=== PATIENT | female | born 1950 | race Caucasian/White ===

== ENCOUNTER → 2017-07-05 | Outpatient (CLI) | payer OTHER, MEDICARE ==
[~2017-07-05] MED LIST: ALBU1AER9 INH; ASPEC325 PO; ATEN-173 PO; ATOR-24 PO; DILT120C51 PO; EFFSR75 PO; FLUT220A PO; HYDR25TA4 PO; ISOS120T PO; LISI-729 PO; NTRGSL/4 UT; TIOTCAP INH
--- NOTE | 2017-07-06 05:57 | PAP/PSG TECHNICIAN REPORT ---
[facility] Siding Coreboard Inspector Polysomnogram Report Study name: None Report date: 07/06/2017 Study date: 07/05/2017 Referring Physician: Misty Renee M.D. Name: EMILY PELAEZ Interpreting Physician: Doron Renee M.D. Date of : 1950 Siding Coreboard Inspector: Sil Elliott [facility]. Sex: Female Age: 67 StudyType: PSG Weight: 239 lbs Height: 67 years, Height 5' 7.5" Neck Circum: 15.5 inches BMI: 36.88 Medications: Breo Ellipta 100-25 MCG, Nitro Stat 0.4 mg, Lipitor 80 mg, Prinivil 5 mg, Isosorbide 120 mg, ProAir 108(90 Base), HCTZ 25 mg, Diltiazem 120 mg, Advair 250-50 MCG, Atenolol 25 mg, Effexor 75 mg, Spiriva 18 mcg, Aspirin Patient History 66 yr. old female here for a possible split night sleep study with ETC02. Patient complains of EDS, snoring, restlessness, and has dream enactment. Patient has a history of HCC and ASVCD. Patients [place] Sleepiness Scale Score is 13/24. Parameters Monitored NPSG: E1-M2, E2-M1, Fp1-M2, Fp2-M1, F3-M2, F4-M2, F4-M1, C3-M2, C4-M2, C4-M1, O1-M2, O2-M2, O2-M1, T3-M2, T4-M1, P3-M2, P4-M1, CHIN1, CHIN2, HR, EKG, Legs, PFLOW, SNOR, FLOW, CFLOW, Tidal Volume, THOR, ABDO, SpO2, PLTH, CPRESS, ETCO2 Wave, ETCO2, pH Sleep Architecture Sleep Stages Time at Lights Off 10:00:26 PM STAGES Time (min.) TST (%) Time at Lights On 5:42:56 AM Wake 121.0 -- Total Recording Time (TRT) 463.00 min. N1 51.0 15 Total Sleep Period (TSP) 426.5 min. N2 197.5 58 Total Sleep Time (TST) 341.5min. N3 28.5 8 Awake Time 121.0 min. REM 64.5 19 Wake after Sleep Onset 85.0 min. Sleep Efficiency (SE) 74 % Sleep Onset Latency (BINH) 36.0 min. Number of Stage 1 Shifts None Awakenings 22 Stage Changes 94 Number of REM periods 1 REM 64.5 19 REM Latency 306.5 min. NREM 277.0 81 Body Position Analysis Supine Right Left Side Prone Vertical Total Sleep Time (min.) 57.0 197.0 119.5 316.50 0.0 0.1 Total Sleep Time (%) 7% 58% 35% 93 0% N/A% Total Sleep Time REM (min.) 0.0 64.5 0.0 None 0.0 0.0 Total Sleep Time NREM (min.) 25.0 132.5 119.5 None 0.0 0.0 Intermittent Wake (min.) 32.0 69.2 19.7 None 0.0 0.1 Total Sleep Period (%) 6% None None None None None Arousals Myoclonus (PLM) * Events Count Index Events Count Index Spontaneous 5 1 Events Awake (PLMW) 140 69.4 Respiratory 0 0.0 Events Asleep w/ Arousal (PLMA) 46 8.1 PLM 46 8 Events Asleep w/o Arousal (PLMS) 390 68.5 Snoring 6 1 Total Asleep 436 76.6 Total 57 10 Total 576 75 Respiratory Analysis * CA OA MA CH H RERA Total Count 0 0 0 0 10 0 10 Index 0.0 0.0 0.0 0 1.8 0 1.8 Mean Duration 0.0 0.0 0.0 0.00 25.5 0.0 25.5 Longest Duration 0.0 0.0 0.0 0.00 0.0 0.0 59.8 Respiratory Event Summary Total Supine ~Supine Right Left Prone REM NREM Apneas Count 0 0 0 0 0 N/A 0 0 Index 0.0 0 0 0.0 0.0 N/A 0 0 Hypopneas (4% Desat) Count 10 1 9 3 6 N/A 3 7 Index 1.8 2.4 2 0.9 3.0 N/A 2.8 1.5 Apneas & All Hypopneas Count 10 1 9 3 6 N/A 3 7 Index 1.8 2 2 1 3 N/A 2.8 1.5 Respiratory Events (Premises Technician+All Hyp+RERA) Count 10 1 9 3 6 N/A 3 7 Index 1.8 2 2 0.9 3.0 N/A 2.8 1.5 Respiratory Related Arousal Count 0 1 0 0 0 N/A 0 0 Index 0.0 0 0 0 0 N/A 0 0 Snoring Analysis Supine Right Left Prone REM NREM Total Snore duration 8.3 min Snores count 30 112 360 N/A 8 494 502 Snore mean duration 1.0 Sec Snores index 72 34 181 N/A 7.4 107.0 88.2 TST with snoring (%) 2.4% SpO2 Analysis Total REM NREM Awake <50% 0.0 min. 0.0 min. 0.0 min. 0.0 min. 51 - 60% 0.0 min. 0.0 min. 0.0 min. 0.0 min. 61 - 70% 0.0 min. 0.0 min. 0.0 min. 0.0 min. 71 - 80% 21.1 min. 0.5 min. 14.6 min. 5.9 min. 81 - 90% 408.4 min. 64.0 min. 246.1 min. 98.4 min. 91 - 100% 23.2 min. 0.0 min. 16.2 min. 6.9 min. Average 85 86 85 85 Minimum SpO2 75 79 75 75 Desaturation Event Index 3.1 3.7 2.4 4.5 # Desat. Events below 89% 24 4 11 9 Time(%) with Saturation below 89% 88.0 13.9 53.2 20.9 Time(min.) with Saturation below 89% 398.6 62.7 241.0 94.8 Heart Rate Analysis End Tidal CO2 Analysis Min (bpm) Max (bpm) Average (bpm) TSP (mins) % of TSP Awake 64 205 80 Above 55 mmHg 0.0 0.0 NREM 61 86 77 50-55 mmHg 0.0 0.0 REM 75 88 81 45-50 mmHg 1.1 0.3 Overall 61 88 77 40-45 mmHg 203.4 59.6 35-40 mmHg 114.7 33.6 30-35 mmHg 15.3 4.5 Average ETCO2 0.0 Supplemental O2 Values Minimum O2 level: None Value Start Time End Time Siding Coreboard Inspector Comments Test was started on room air. At 4:53 am, MS. Pelaez was under 89% for 302.2 minutes and 1lpm 02 was added. MS. Pelaez slept in the right, left, and supine positions. No Cardiac arrhythmia. PLMs noted. No bruxism noted. Snoring was noted and scored as a 2 on a scale of 0 through 5. (0=no snoring, 5=snoring loud enough to be heard through a closed door or down the vigil way) MS. Pelaez awoke to use the restroom two times during the night. MS. Pelaez stated, that was a pretty normal night. The final report will be interpreted and signed by a sleep physician. The completed physician report will then be placed in the patient medical record. Therapy (cm H2O) 0 TIB (min.) 462.5 TST (min.) 341.5 Sleep Onset (min.) 36.0 REM Onset From Sleep (min.) 306.5 Sleep Efficiency % 74 Wakefulness (%) 26 Wakefulness (min.) 121.0 NREM 1 (%) 15 NREM 1 (min.) 51.0 NREM 2 (%) 58 NREM 2 (min.) 197.5 NREM 3 (%) 8 NREM 3 (min.) 28.5 REM (%) 19 REM (min.) 64.5 # Arousals 57 Arousal Index 10 # Snore 502 Snore Index 88.2 AHI 1.8 AHI Supine 2 AHI Non-Supine 2 NREM AHI 1.5 REM AHI 2.8 RDI 1.8 # Obstructive Apnea 0 # Central Apnea 0 # Mixed Apnea 0 # Hypopneas 10 RERAs 0 Total Respiratory Events 11 Time Below SpO2 89% (min.) 303.8 Mean NREM SpO2 (%) 85 Mean REM SpO2 (%) 86 Mean Sleep SpO2 (%) 85 Min NREM SpO2 (%) 75 Min REM SpO2 (%) 79 Position Supine (min.) 57.0 Position Non-supine (min.) 316.5 LM Index Sleep 76.6 LM Index NREM 92.9 LM Index REM 6.5 Mean Heart Rate (bpm) 77 Min Heart Rate (bpm) 61
--- NOTE | 2017-07-14 09:19 | POLYSOMNOGRAPH REPORT ---
REFERRING PERSON: Dr. Gio Renee. GAS STATION ATTENDANT: Sil Elliott. Ms. Pelaez is a 66-year-old female sent for a possible split night sleep study. She complains of excessive daytime sleepiness, snoring, restlessness and she has had some dream enactment. She has a history of atherosclerotic heart disease. Her [place] sleepiness scale score on the evening of this study is 13. BMI is 36.88. Following the technical and digital specifications of the [place] [employer] (AASM) a standard diagnostic polysomnogram was performed monitoring EEG, EOG, EMG (chin and leg deviations), oxygen saturation, body position, digital video, respiratory effort and airflow. The sleep Stage and event scoring was based on the AASM Manual for the Scoring of Sleep and Associated Events 2007 edition. Apneas are defined as a drop in the peak thermal sensor excursion by >90% of baseline for at least 10 seconds. Hypopneas were scored using the 4% oxygen desaturation rule (4A-[employer]) and a decrease in the nasal pressure excursions by >30% of baseline for at least 10 seconds. Respiratory effort-related arousal (RERA's) is defined as a sequence of breaths lasting at least 10 seconds characterized by increasing respiratory effort or flattening of the nasal pressure waveform leading to an arousal from sleep when the sequence of breaths does not meet criteria for an apnea or hypopnea. Apnea Hypopnea index (AHI) is defined as the number of apneas and hypopneas occurring in an hour of sleep. Respiratory disturbance index (RDI) is defined as the number of apneas, hypopneas, and RERA's occurring in an hour of sleep. Ms. Pelaez' total sleep period time was 426.5 minutes. Total sleep time was 341.5 minutes. Sleep efficiency was 74%. Latency to sleep onset was 36 minutes with wake after sleep onset of 85 minutes. Total non-REM sleep time was 277 minutes. He spent 15% of that time in N1 sleep, 58% in N2 sleep and 8% in N3 sleep. REM latency was 306.5 minutes. Total REM sleep time was 64.5 minutes or 19% of total sleep time. There were 57 cortical arousals from sleep. Six of these arousals were due to snoring and 46 were due to periodic limb movements of sleep and 5 were due to snoring. There were 436 periodic limb movements noted on this test. Limb movement index was 76.6. Limb movement with arousal index was 8.1. There were no central obstructive or mixed apneas on this test. However, there were 10 hypopneas. Apnea-hypopnea index was normal at 1.8. 502 snoring events were recorded. Total sleep time with snoring was 2.4%. Mean saturation was low at 85% with desaturations to 75% noted on this study. Saturations were less than 89 for 398.6 minutes of recorded time. This is very significant nocturnal hypoxemia. This may contribute to periodic limb movements of sleep that were noted on this test as well. At 4:53 a.m., this patient's saturations had been less than 89 for 302.2 minutes of recorded time and 1 liter of oxygen was added for the remainder of the night. Heart rates during sleep ranged from a low of 61 beats per minute to a high of 88 beats per minute. End-tidal CO2s were between 40 and 45 mmHg for 59.6% of total sleep period time, between 35 and 40 mmHg for 33.6% and between 30 and 35 mmHg for 4.5% of total sleep period time. IMPRESSION AND PLAN: Ms. Pelaez is a 67-year-old female without evidence of sleep apnea but very significant nocturnal hypoxemia on this study. 1. This patient would likely benefit from oxygen therapy. She could have an NPO at home to ensure her hypoxemia resolves with oxygen therapy. Should her insurance require, she could have an NPO prior to starting oxygen to confirm these results. 2. This patient would likely also benefit from pulmonary function test and/or pulmonary consult given that her hypoxemia was noted both during wakefulness and sleep.
== END | disposition home or self-care (01) ==
LOC: C.NEUR 09:12
PROVIDERS: ATTEND Family Medicine
DX: R06.83 Snoring (principal); G47.10 Hypersomnia, unspecified; J96.11 Chronic respiratory failure with hypoxia; I25.10 Atherosclerotic heart disease of native coronary artery without angina pectoris; J44.9 Chronic obstructive pulmonary disease, unspecified

== ENCOUNTER 2023-03-26 08:28 | Inpatient (IN) ==
[2023-03-26] MEDS ORDERED: SODIUM CHLORIDE 0.9% 500 ML IV STA (08:44)
[2023-03-26] MEDS ORDERED: SODIUM CHLORIDE 0.9% 1000ML 1,000 ML IV STA (08:44)
[2023-03-26] MEDS ORDERED: ONDANSETRON INJ 2 MG/ML 2 ML VIAL IV STA (08:44)
--- NOTE | 2023-03-26 08:56 | Emergency Department Note ---
Impression & Plan Abdominal pain, lower, Acute UTI (urinary tract infection), Pyelonephritis, Hydroureteronephrosis, Abdominal lymphadenopathy ED Provider Note INFORMANT: Patient ED PROVIDER(S): Wojciech Eavns MD CHIEF COMPLAINT: Abdominal pain PLAN: Disposition: Admitted Condition: Good Outpatient prescription management: none Referral: None MEDICAL DECISION MAKING: Patient presented because of abdominal pain. She had an IV established. Blood work obtained. Patient was treated with Zofran and IV fentanyl. She felt significantly better after this. Patient's blood work was concerning for mild leukocytosis. Lactate was within normal limits. Chemistry panel including creatinine was unremarkable. Urinalysis raise concern for infection. Patient underwent CT imaging and she had hydronephrosis and hydroureter on the left without obvious stone. There was concerned due to significant mount of adenopathy in the abdomen. Exact etiology of this is not known however lymphoma is a possibility. I did discuss this with patient. Given the findings concerning for upper UTI further consultation and hospitalization will be necessary. Consultation was made with Dr. Perez of urology. He will see the patient in consult. I did consult with the [facility] service. Case was discussed with Sivan Gillespie PA-C. Patient will be admitted for further management. Patient was treated with IV Rocephin. Patient was educated. Patient pleased with her treatment. Discussed with digital marketing manager After review of the information above and other included data, I feel the patient requires admission. Triage Nursing notes reviewed and agree them. Vital Signs: reviewed and remarkable for no significant abnormalities Prior /Outside records reviewed: GI records reviewed. Differential diagnosis: Diverticulitis, mesenteric ischemia, renal colic, UTI, appendicitis, aortic pathology, infections, inflammatory bowel disease, PUD, biliary pathology, as well as other pathologies. Diagnostics, as interpreted by me: ECG: Twelve-lead ECG reveals sinus tachycardia with PVCs at [address] elevation. Low voltage QRS. Septal Q wave. Cardiac Monitoring: Cardiac monitoring ordered by me: The patient was placed on continuous cardiac monitoring and observed. It revealed a normal sinus rhythm at 88 beats per minute without ectopy or evidence of dysrhythmia. Medical decision rules: none Imaging studies: CT scan as above. Lymphadenopathy and hydroureteronephrosis. I refer you to the EMR for further details. HPI: The patient is a 72year old female who presents to the Emergency Room with complaints of lower abdominal pain. This started about 1.5 to 2 weeks ago and is constant and worsening. The patient also notes the following associated symptoms, nausea, dry heaves, no appetite, back pain, loss of weight. The patient has found no relieving factors. Current pain is rated as 9/10. Pt denies LOC, headache, fevers, chills, diaphoresis, visual changes, neck pain, chest pain, breathing difficulties, vomiting, melena, hematochezia, urinary symptoms, numbness, weakness, lymphadenopathy, rash, or other complaints. PAST MEDICAL HISTORY: See Below, diabetes, hypertension, high cholesterol, CAD PAST SURGICAL HISTORY: See Below, SOCIAL HISTORY: See Below, former smoker HOME MEDICATIONS: See Below ALLERGIES: See Below VITALS: See Below PHYSICAL EXAMINATION: GENERAL: Awake, alert, uncomfortable-appearing, in mild to moderate distress HENT: Normocephalic, atraumatic. Oropharynx unremarkable. EYES: Normal conjunctiva. Sclera non-icteric. NECK: Inspection normal. Non-tender. Supple. No nuchal rigidity. FROM. No masses. RESPIRATORY: Clear to auscultation. No wheezes. No rales. Normal respiratory effort. CARDIAC: Normal rate. Normal rhythm. No murmurs. No rubs. Extremities warm and well perfused. Pulses equal. No JVD. GI: Soft, non-distended. Mild upper but moderate left lower quadrant tenderness to palpation. No rebound but moderate guarding. No masses. MUSCULOSKELETAL: Atraumatic. Chest examination reveals no tenderness. The back is symmetrical on inspection without obvious abnormality. There is mild left CVA tenderness to palpation. No joint edema. LOWER EXTREMITIES: Calves are equal size bilaterally and non-tender. No edema. No discoloration. NEURO: Normal sensorium. No sensory or motor deficits noted. SKIN: No rash or jaundice noted. Past Med/Surg History Medical History (Updated 03/26/23 @ 13:17 by Wojciech Evans MD) Anxiety and depression CAD (coronary artery disease) F/U ETIENNE CHISHOLM/RADHA SMITH Chest pain HX-LAST EPISODE OVER 1 MONTH AGO-NITRO RELIEVED Chronic obstructive pulmonary disease USES INHALER "OFTEN" Chronic respiratory failure Diabetes mellitus, type 2 GERD (gastroesophageal reflux disease) Hyperlipidemia Hypertension Myocardial Infarction X2 (5+ YEARS AGO) On home oxygen therapy 3L O2 ORDERED PRN AT HOME Osteoporosis Restless leg syndrome Stomach ulcer ?>REASON FOR EGD Surgical History Ganglion cyst REMOVED ON WRIST H/O total hysterectomy History of arthroscopy RT/LEFT KNEE History of cardiac cath X 3 ( NO STENTS, LAST 3 YEARS AGO) FOLLOWED BY DR. SMITH History of colonoscopy History of esophagogastroduodenoscopy (EGD) History of herniorrhaphy History of open reduction and internal fixation (ORIF) procedure LEFT ANKLE (HARDWARE INTACT) History of tooth extraction Family History Brother Family hx of colon cancer Other No family history of adverse response to anesthesia Social History Smoking Status: Former smoker Tobacco Type: Cigarettes Second Hand Exposure: No; Do You Dip or Chew Tobacco: No; Hx Alcohol Use: No Hx Substance Use: No Preferred Language: Mohawk Communication Ability: Effective Road Passenger Firer Required: No Beliefs That Will Affect Care: None Current Living Situation: Spouse Current Living Situation Comment: HAS DEMENTIA>PT HELPS TAKE CARE OF HIM current occupational status: retired Feels Safe at Home: Yes Assistive Devices: Denture - Upper and Glasses Allergies Allergies Allergy/AdvReac Type Severity Reaction Status Date / Time tramadol Allergy Severe HIVES/TONGUE Verified 03/02/23 08:20 SWELLING morphine AdvReac Intermediate SEVERE N/V Verified 03/02/23 08:20 codeine AdvReac Mild NAUSEATED Verified 03/02/23 08:20 AND DIZZINESS, NO VOMITING YET. Home Meds Home Medications Medication Instructions Recorded Confirmed albuterol sulfate 90 mcg/actuation 2 inh inhalation Q6H PRN SHORT OF 09/03/19 03/26/23 breath activated powder inhaler BREATH (ProAir RespiClick) aspirin 81 mg tablet,delayed 81 mg PO QAM 09/03/19 03/26/23 release atenolol 25 mg tablet 25 mg PO UD 09/03/19 03/26/23 atorvastatin 80 mg tablet 80 mg PO HS 09/03/19 03/26/23 diltiazem HCl 180 mg 180 mg PO QAM 09/03/19 03/26/23 capsule,extended release 24 hr hydrochlorothiazide 25 mg tablet 25 mg PO QAM 09/03/19 03/26/23 isosorbide mononitrate 120 mg 120 mg PO QAM 09/03/19 03/26/23 tablet,extended release 24 hr lisinopril 5 mg tablet 5 mg PO QAM 09/03/19 03/26/23 metformin 500 mg tablet 1,000 mg PO BID 09/03/19 03/26/23 venlafaxine 150 mg 75 mg PO QAM 09/03/19 03/26/23 capsule,extended release 24 hr nitroglycerin 0.4 mg sublingual 0.4 mg sublingual USEASDIRECTD PRN 09/11/20 03/26/23 tablet (Nitrostat) Chest Pain famotidine 40 mg tablet (Pepcid) 40 mg PO HS 04/13/22 03/26/23 ondansetron 4 mg disintegrating 4 mg PO Q6H PRN Nausea 02/24/23 03/26/23 tablet sucralfate 1 gram tablet 1 g PO ACHS 02/24/23 03/26/23 iron,carbonyl 65 mg-vitamin C 125 1 tab PO MOWEFR@0900 03/26/23 03/26/23 mg tablet,delayed release (Vitron-C) nystatin 100,000 unit/gram topical 1 applic topical TID 03/26/23 03/26/23 powder umeclidinium 62.5 mcg-vilanterol 1 inh inhalation DAILY 03/26/23 03/26/23 25 mcg/actuation powdr for inhalation (Anoro Ellipta) Results & Data (ED) Vital Signs Vital Signs - 24 hr 03/26/23 08:36 03/26/23 09:06 03/26/23 09:24 Temperature 36.6 C Temperature Source Temporal Artery Scan Pulse Rate 88 102 H Pulse Rate [Left Finger] Pulse Rhythm [Left Finger] Pulse Strength [Left Finger] Respiratory Rate 20 Respiratory Effort / Characteristics Non-Labored Respiratory Depth Normal Respiratory Pattern Blood Pressure 167/91 H Blood Pressure [Left Arm] Blood Pressure Mean 116 Blood Pressure Mean [Left Arm] Blood Pressure Position [Left Arm] Pulse Oximetry 97 85 L Oxygen Delivery Method Room Air Room Air Oxygen Flow Rate Sepsis Recent Fever Within 48 Hours No Sepsis New/Unexplained Change in Mental Status N/A Sepsis Action Taken by Nursing No Action Required Oxygen Flow Rate - Titration 3 Pulse Oximetry Post Tiitration 95 03/26/23 10:03 03/26/23 11:51 03/26/23 11:53 Temperature Temperature Source Pulse Rate Pulse Rate [Left Finger] 100 H 106 H Pulse Rhythm [Left Finger] Regular Pulse Strength [Left Finger] Normal Respiratory Rate 26 H Respiratory Effort / Characteristics Non-Labored Spontaneous Respiratory Depth Normal Respiratory Pattern Regular Blood Pressure Blood Pressure [Left Arm] 192/98 H 192/98 H 175/108 H Blood Pressure Mean Blood Pressure Mean [Left Arm] 129 129 130 Blood Pressure Position [Left Arm] Sitting Pulse Oximetry 100 92 Oxygen Delivery Method Nasal Cannula Nasal Cannula Oxygen Flow Rate 3 3 Sepsis Recent Fever Within 48 Hours Sepsis New/Unexplained Change in Mental Status Sepsis Action Taken by Nursing Oxygen Flow Rate - Titration Pulse Oximetry Post Tiitration 03/26/23 12:07 Temperature Temperature Source Pulse Rate 107 H Pulse Rate [Left Finger] Pulse Rhythm [Left Finger] Pulse Strength [Left Finger] Respiratory Rate Respiratory Effort / Characteristics Respiratory Depth Respiratory Pattern Blood Pressure 175/108 H Blood Pressure [Left Arm] Blood Pressure Mean Blood Pressure Mean [Left Arm] Blood Pressure Position [Left Arm] Pulse Oximetry Oxygen Delivery Method Oxygen Flow Rate Sepsis Recent Fever Within 48 Hours Sepsis New/Unexplained Change in Mental Status Sepsis Action Taken by Nursing Oxygen Flow Rate - Titration Pulse Oximetry Post Tiitration Laboratory Data 03/26/23 09:04 03/26/23 09:04 Lab Results 03/26/23 03/26/23 03/26/23 Range/Units 09:04 09:04 09:04 WBC 11.81 H (4.8-10.8) K/ul RBC 5.18 (4.20-5.40) M/uL Hgb 12.9 (12.0-16.0) g/dl Hct 39.3 (37.0-47.0) % MCV 75.9 L (80.0-100.0) fL MCH 24.9 L (25.0-34.0) pg MCHC 32.8 (32.0-36.0) g/dL RDW Std Deviation 41.1 (36.4-46.3) fL RDW Coeff of Rajendra 15.0 H (11.5-14.5) % Plt Count 290 (130-400) K/uL MPV 8.6 L (9.4-12.4) fL Immature Gran % (Auto) 0.4 % Neut % (Auto) 88.9 % Lymph % (Auto) 5.1 % [place] % (Auto) 5.3 % Eos % (Auto) 0.1 % Baso % (Auto) 0.2 % Neut # (Auto) 10.50 H (1.40-6.50) K/uL Lymph # (Auto) 0.60 L (1.2-3.4) K/uL [place] # (Auto) 0.63 H (0.11-0.59) K/uL Eos # (Auto) 0.01 (0-0.50) K/uL Baso # (Auto) 0.02 (0-0.2) K/uL Immature Gran # (Auto) 0.05 (0.01-0.20) K/uL Sodium 131 L (136-145) mmol/L Potassium 3.8 (3.5-5.1) mmol/L Chloride 95 L (98-107) mmol/L Carbon Dioxide 27 (21-32) mmol/L Anion Gap 9 (3-11) BUN 19 (6-23) mg/dl Creatinine 0.88 (0.6-1.2) mg/dl Est Cr Clr Drug Dosing 64.1 ml/min Est GFR ( Amer) 75.5 ml/min Est GFR (Non-Af Amer) 65.2 ml/min BUN/Creatinine Ratio 21.6 H (10-20) Glucose 186 H (70-99(Fasting)) mg/dl Lactate 1.9 (0.4-2.0) mmol/L Calcium 9.8 (8.6-10.3) mg/dl Total Bilirubin 0.6 (0.2-1.0) mg/dl AST 15 (13-39) U/L ALT 12 (7-52) U/L Alkaline Phosphatase 98 (34-104) U/L Troponin I High Sens 7.6 (0-14) pg/ml Total Protein 9.1 H (6.0-8.3) gm/dl Albumin 3.7 (3.4-5.0) gm/dl Globulin 5.4 H (2.5-4.0) gm/dl Albumin/Globulin Ratio 0.7 L (0.9-2) Lipase 27 (11-82) U/L Urine Color Urine Appearance (Clear) Urine pH (4.5-7.5) Ur Specific [place] (1.000-1.030) Urine Protein (Negative) Urine Glucose (UA) (Negative) Urine Ketones (Negative) Urine Blood (Negative) Urine Nitrite (Negative) Urine Bilirubin (Negative) Urine Urobilinogen (Negative) Ur Leukocyte Esterase (Negative) Urine WBC (Auto) (0-5) /hpf Urine RBC (Auto) (0-4) /hpf U Hyaline Cast (Auto) (0-5) /lpf U Epithel Cells (Auto) (0-5) /lpf Urine Bacteria (Auto) (Negative) Granular Casts (0) /lpf SARS-CoV-2, RNA, NAAT (NEGATIVE) 03/26/23 03/26/23 Range/Units 09:22 09:23 WBC (4.8-10.8) K/ul RBC (4.20-5.40) M/uL Hgb (12.0-16.0) g/dl Hct (37.0-47.0) % MCV (80.0-100.0) fL MCH (25.0-34.0) pg MCHC (32.0-36.0) g/dL RDW Std Deviation (36.4-46.3) fL RDW Coeff of Rajendra (11.5-14.5) % Plt Count (130-400) K/uL MPV (9.4-12.4) fL Immature Gran % (Auto) % Neut % (Auto) % Lymph % (Auto) % [place] % (Auto) % Eos % (Auto) % Baso % (Auto) % Neut # (Auto) (1.40-6.50) K/uL Lymph # (Auto) (1.2-3.4) K/uL [place] # (Auto) (0.11-0.59) K/uL Eos # (Auto) (0-0.50) K/uL Baso # (Auto) (0-0.2) K/uL Immature Gran # (Auto) (0.01-0.20) K/uL Sodium (136-145) mmol/L Potassium (3.5-5.1) mmol/L Chloride (98-107) mmol/L Carbon Dioxide (21-32) mmol/L Anion Gap (3-11) BUN (6-23) mg/dl Creatinine (0.6-1.2) mg/dl Est Cr Clr Drug Dosing ml/min Est GFR ( Amer) ml/min Est GFR (Non-Af Amer) ml/min BUN/Creatinine Ratio (10-20) Glucose (70-99(Fasting)) mg/dl Lactate (0.4-2.0) mmol/L Calcium (8.6-10.3) mg/dl Total Bilirubin (0.2-1.0) mg/dl AST (13-39) U/L ALT (7-52) U/L Alkaline Phosphatase (34-104) U/L Troponin I High Sens (0-14) pg/ml Total Protein (6.0-8.3) gm/dl Albumin (3.4-5.0) gm/dl Globulin (2.5-4.0) gm/dl Albumin/Globulin Ratio (0.9-2) Lipase (11-82) U/L Urine Color Dark Yellow Urine Appearance Turbid A (Clear) Urine pH 5.0 (4.5-7.5) Ur Specific [place] 1.030 (1.000-1.030) Urine Protein 3+ H (Negative) Urine Glucose (UA) Negative (Negative) Urine Ketones Trace H (Negative) Urine Blood 2+ H (Negative) Urine Nitrite Negative (Negative) Urine Bilirubin Negative (Negative) Urine Urobilinogen Negative (Negative) Ur Leukocyte Esterase Negative (Negative) Urine WBC (Auto) 10-30 H (0-5) /hpf Urine RBC (Auto) 0-4 (0-4) /hpf U Hyaline Cast (Auto) 1-5 (0-5) /lpf U Epithel Cells (Auto) >30 H (0-5) /lpf Urine Bacteria (Auto) 1+ H (Negative) Granular Casts 1-5 H (0) /lpf SARS-CoV-2, RNA, NAAT NEGATIVE (NEGATIVE) Administered Medications Fentanyl Citrate (Fentanyl Citrate Pf 100 Mcg/2 Ml Vial) 25 mcg IV Q15M PRN PRN Reason: Pain Stop: 04/09/23 08:50 Last Admin: 03/26/23 12:05 Dose: 25 mcg Documented By: Admin: 03/26/23 10:09 Dose: 25 mcg Documented By: Admin: 03/26/23 09:13 Dose: 25 mcg Documented By: DEVIN Sodium Chloride (Nss 1000ml) 1,000 mls @ 125 mls/hr IV .Q8H STA Stop: 03/26/23 16:43 Last Admin: 03/26/23 10:03 Dose: 125 mls/hr Documented By: DEVIN Discontinued Medications Sodium Chloride (Nss) 500 mls @ 999 mls/hr IV .Q31M STA Stop: 03/26/23 09:14 Last Infusion: 03/26/23 11:36 Dose: 0 mls/hr Documented By: Admin: 03/26/23 09:15 Dose: 999 mls/hr Documented By: DEVIN Ceftriaxone Sodium (Rocephin) 2,000 mg in 70 mls @ 140 mls/hr IV NOW STA Stop: 03/26/23 11:23 Last Admin: 03/26/23 11:28 Dose: 140 mls/hr Documented By: DEVIN Ioversol (Optiray 320 100ml) 95 ml IV ONCE ONE Stop: 03/26/23 10:01 Last Admin: 03/26/23 10:01 Dose: 95 ml Documented By: GERDA Metoprolol Tartrate (Metoprolol Tartrate 1 Mg/Ml Vial) 10 mg IV NOW STA Stop: 03/26/23 11:49 Last Admin: 03/26/23 12:07 Dose: 10 mg Documented By: DEVIN Ondansetron HCl (Ondansetron Inj 2 Mg/Ml 2 Ml Vial) 4 mg IV NOW STA Stop: 03/26/23 08:45 Last Admin: 03/26/23 09:15 Dose: 4 mg Documented By: DEVIN Imaging Data Radiologist's Impression: Abdomen/Pelvis CT 03/26/23 09:[address] WITH IV CONTRAST CT DOSE: 568.85 mGy.cm HISTORY: nausea, lower abd pain TECHNIQUE: Multiaxial CT images of the abdomen and pelvis were performed following the use of intravenous contrast. A dose lowering technique was utilized adhering to the principles of ALARA. COMPARISON STUDY: None. FINDINGS: Emphysema at the lung bases. No pneumoperitoneum. No pneumatosis. There is a small pericardial effusion. Mildly enlarged anterior pericardial lymph node measuring 1 cm. The liver, gallbladder, pancreas, spleen, and adrenal glands unremarkable. The main portal vein is patent. Moderate calcified plaque within the normal caliber abdominal aorta. Multiple enlarged lymph nodes within the distal thoracic periaortic, retrocrural, and retroperitoneal apurva stations. A dominant right retrocrural lymph node measures 3.3 x 2.6 cm. A dominant left retroperitoneal lymph node measures 3.3 x 1.9 cm. No mesenteric or pelvic lymphadenopathy. Moderate bladder wall thickening. Prior hysterectomy. Colonic diverticulosis. No evidence for acute diverticulitis. Moderate fecal retention. No bowel wall thickening or obstruction. Normal appendix. There are few right peripelvic renal cysts. No right-sided hydronephrosis. There is moderate to severe left hydroureteronephrosis to the level of the UVJ. However, no obstructing stones identified. There is diffuse urothelial thickening within the left renal pelvis and left ureter with periureteral edema most pronounced at the left UPJ. There is a delayed left nephrogram with left perinephric edema. There are few small hypodense lesions within the left kidney which favor cysts. IMPRESSION: 1. Multiple enlarged retroperitoneal, retrocrural, and distal thoracic periaortic lymph nodes. This is highly suspicious for a neoplastic process such as a lymphoma. Follow-up oncology consultation recommended. 2. Moderate to severe left-sided hydroureteronephrosis to the level of the u reterovesical junction. However, no obstructing stones identified. There is also moderate bladder wall thickening and diffuse urothelial thickening within the left renal pelvis and left ureter. Therefore, this could be due to a left-sided pyelonephritis/cystitis. Lymphomatous involvement of the left ureter should also be considered in the differential diagnosis. The hydronephrosis could also be se condary to an occult mass or stricture at the left UVJ. Follow-up urology consultation recommended. 3. Small pericardial effusion. 4. Additional findings as described above. ACT 112: Negative or not required by law. Electronically signed by: Yoan Jean M.D. 03/26/2023 10:40 AM Discharge Plan Visit Data Chief Complaint: Pelvic Pain Stated Complaint: PAIN ABOVE PELVIC BONE, NAUSEA ED Provider: Wojciech Evans Discharge Problem: Abdominal pain, lower, Acute UTI (urinary tract infection), Pyelonephritis, Hydroureteronephrosis, Abdominal lymphadenopathy Patient Disposition: Admitted As Inpatient Discharge Instructions Interventions: ED Discharge Assessment Last Done: 03/26/23 12:45
[2023-03-26] MEDS: fentaNYL citrate PF 100 MCG/2 ML VIAL IV PRN ×3 (09:13→12:05)
[2023-03-26 09:28] LABS: Basophils # (auto) 0.02 K/uL (0-0.2); Basophils % (auto) 0.2 %; Eosinophils # (auto) 0.01 K/uL (0-0.50); Eosinophils % (auto) 0.1 %; Hematocrit (blood only) 39.3 % (37.0-47.0); Hemoglobin 12.9 g/dl (12.0-16.0); Immature Granulocytes # (auto) 0.05 K/uL (0.01-0.20); Immature Granulocytes % (auto) 0.4 %; Lymphocytes % (auto) 5.1 %; Mean Corpuscular Hemoglobin 24.9 pg (25.0-34.0); Mean Corpuscular Hgb Conc 32.8 g/dL (32.0-36.0); Mean Corpuscular Volume 75.9 fL (80.0-100.0); Mean Platelet Volume 8.6 fL (9.4-12.4); Monocytes # (auto) 0.63 K/uL (0.11-0.59); Monocytes % (auto) 5.3 %; Neutrophils % (auto) 88.9 %; Platelet Count 290 K/uL (130-400); RDW Standard Deviation 41.1 fL (36.4-46.3); Red Blood Count 5.18 M/uL (4.20-5.40); White Blood Count 11.81 K/ul (4.8-10.8)
[2023-03-26 09:31] LABS: Appearance Urine Turbid (Clear); Bilirubin Urine Negative (Negative); Blood Urine 2+ (Negative); Color Urine Dark Yellow; Epithelial Cell Urine Auto >30 /lpf (0-5); Glucose Urine UA Negative (Negative); Ketones Urine Trace (Negative); Leukocyte Esterase Urine Negative (Negative); Nitrite Urine Negative (Negative); Protein Urine 3+ (Negative); RBC Urine Automated 0-4 /hpf (0-4); Urobilinogen Urine Negative (Negative)
[2023-03-26 09:43] LABS: Albumin Globulin Ratio 0.7 (0.9-2); Albumin Level 3.7 gm/dl (3.4-5.0); BUN Creatinine Ratio 21.6 (10-20); Bilirubin,Total 0.6 mg/dl (0.2-1.0); Calcium 9.8 mg/dl (8.6-10.3); Creatinine Clr Calc Pharmacy 64.1 ml/min; Est GFR (African American) 75.5 ml/min; Est GFR (Non-African American) 65.2 ml/min; Globulin 5.4 gm/dl (2.5-4.0); Potassium 3.8 mmol/L (3.5-5.1); Total Protein 9.1 gm/dl (6.0-8.3)
[2023-03-26 09:47] LABS: Troponin I High Sensitivity 7.6 pg/ml (0-14)
[2023-03-26 09:59] LABS: Bacteria Urine Automated 1+ (Negative)
[2023-03-26] MEDS ORDERED: OPTIRAY 320 100ml IV ONE ×2 (10:00→13:24)
--- NOTE | 2023-03-26 10:43 | CT Scan Report ---
ABDOMEN AND PELVIS CT WITH IV CONTRAST CT DOSE: 568.85 mGy.cm HISTORY: nausea, lower abd pain TECHNIQUE: Multiaxial CT images of the abdomen and pelvis were performed following the use of intrave nous contrast. A dose lowering technique was utilized adhering to the principles of ALARA. COMPARISON STUDY: None. FINDINGS: Emphysema at the lung bases. No pneumoperitoneum. No pneumatosis. There is a small pericard ial effusion. Mildly enlarged anterior pericardial lymph node measuring 1 cm. The liver, gallbladder, pancreas, spleen, and adrenal glands unremarkable. The main portal vein is patent. Moderate calcifie d plaque within the normal caliber abdominal aorta. Multiple enlarged lymph nodes within the distal t horacic periaortic, retrocrural, and retroperitoneal apurva stations. A dominant right retrocrural lym ph node measures 3.3 x 2.6 cm. A dominant left retroperitoneal lymph node measures 3.3 x 1.9 cm. No m esenteric or pelvic lymphadenopathy. Moderate bladder wall thickening. Prior hysterectomy. Colonic di verticulosis. No evidence for acute diverticulitis. Moderate fecal retention. No bowel wall thickenin g or obstruction. Normal appendix. There are few right peripelvic renal cysts. No right-sided hydrone phrosis. There is moderate to severe left hydroureteronephrosis to the level of the UVJ. However, no obstructing stones identified. There is diffuse urothelial thickening within the left renal pelvis an d left ureter with periureteral edema most pronounced at the left UPJ. There is a delayed left nephro gram with left perinephric edema. There are few small hypodense lesions within the left kidney which favor cysts. IMPRESSION: 1. Multiple enlarged retroperitoneal, retrocrural, and distal thoracic periaortic lymph nodes. This i s highly suspicious for a neoplastic process such as a lymphoma. Follow-up oncology consultation nellie mmended. 2. Moderate to severe left-sided hydroureteronephrosis to the level of the ureterovesical junction. H owever, no obstructing stones identified. There is also moderate bladder wall thickening and diffuse urothelial thickening within the left renal pelvis and left ureter. Therefore, this could be due to a left-sided pyelonephritis/cystitis. Lymphomatous involvement of the left ureter should also be consi dered in the differential diagnosis. The hydronephrosis could also be secondary to an occult mass or stricture at the left UVJ. Follow-up urology consultation recommended. 3. Small pericardial effusion. 4. Additional findings as described above. ACT 112: Negative or not required by law. Electronically signed by: Yoan Jean M.D. 03/26/2023 10:40 AM
[2023-03-26] MEDS ORDERED: cefTRIAXone SODIUM 2,000 MG/70 ML BAG IV STA (10:54)
[2023-03-26] MEDS ORDERED: METOPROLOL TARTRATE 1 MG/ML VIAL IV STA (11:48)
--- NOTE | 2023-03-26 12:44 | History & Physical Report ---
Date of Service March 26, 2023 Assessment & Plan (1) Pyelonephritis: (2) Hydroureteronephrosis: (3) Retroperitoneal lymphadenopathy: (4) Pericardial effusion: (5) Hypertensive urgency: (6) Chronic respiratory failure: (7) Diabetes mellitus, type 2: (8) CAD (coronary artery disease): (9) Hyperlipidemia: Plan L sided abd pain with nausea: -2/2 Pyelo with hydroureteronephrosis with Retroperitoneal/periaortic lymph nodes -UCx and BCx sent ---- previous UCx outpt sensitive to cephalosporin ---- will continue ceftriaxone 1g q24hr - CT abd: Moderate to severe left-sided hydroureteronephrosis to the level of the ureterovesical junction. However, no obstructing stones identified. ----- hydronephrosis worsened compared to CT abd from 09/2022 (Results in the HPI) -Urology consulted: possible sent-npo after MN - monitor BMP Multiple enlarged Retroperitoneal, periaortic lymph nodes: -suspicious for lymphoma -no prior hx of lymphoma -will get blood smear with oncology consult -will get CT chest w con for neoplastic workup ---- will decide CT head depending on the CT chest result Small pericardial effusion with hx of CAD: -BP is elevated -not suspecting cardiac tamponade -EKG: Sinus with tachycardia, TWI on V2 -trop neg -will get echo - no need for cardiology consult at this time HTN urgency: -pt does have resistant HTN but did not take home meds today - will do one dose of Lopressor 10mg IV and restart her home HTN meds Chronic respiratory failure with COPD on 3L: -appeared well and maintained SpO2>88 with 1 L - will continue home inhalers DMII: -hold metformin -ISS Iron def anemia/GERD/HLD/Depression: -continue home meds -hgb is better Diet: DMII DVT PPx: Lovenox Code Status:FULL CODE Emergency Contact: Sister-Anjelica [phone] History of Present Illness Chief Complaint: abd pain and dysuria Primary Care Provider: Migel Chung MD Pt is a 72 y/o F with hx of resistant HTN, Chronic respiratory failure 2/2 COPD (on 3L), DMII, CAD, HLD, iron def anemia, Depression, prior hx of recurrent UTI came into the ER with worsening L sided abd pain with nausea and dysuria. Per pt she has been having L sided abd pain for 2 months. Abt 2 weeks ago started to have nausea and 2 days ago started to have dysuria. Denied any diarrhea or constipation, blood in the stool, fever, rash, dizziness, light headedness. But has lost ~20 lbs in last 6 months. At bedside: complained of L sided abd pain (non radiating), mild SOB (chronic). Denied any acute nausea, or CP. ER course: received Ceftriaxone, Zofran, fentanyl 25mcg and [address] abd (09/2022): There is mild left hydronephrosis, with no obstructing renal calculus identified. The left kidney demonstrates poor, ill-defined, heterogeneous cortical enhancement, most likely related to an acute pyelonephritis. There is moderate perinephric stranding. A UPJ obstruction is in the differential. Allergies Allergy/AdvReac Type Severity Reaction Status Date / Time tramadol Allergy Severe HIVES/TONGUE Verified 03/02/23 08:20 SWELLING morphine AdvReac Intermediate SEVERE N/V Verified 03/02/23 08:20 codeine AdvReac Mild NAUSEATED Verified 03/02/23 08:20 AND DIZZINESS, NO VOMITING YET. Home Medications Medication Instructions Recorded Confirmed Type albuterol sulfate 90 mcg/actuation 2 inh inhalation Q6H PRN SHORT OF 09/03/19 03/26/23 History breath activated powder inhaler BREATH (ProAir RespiClick) aspirin 81 mg tablet,delayed 81 mg PO QAM 09/03/19 03/26/23 History release atenolol 25 mg tablet 25 mg PO UD 09/03/19 03/26/23 History atorvastatin 80 mg tablet 80 mg PO HS 09/03/19 03/26/23 History diltiazem HCl 180 mg 180 mg PO QAM 09/03/19 03/26/23 History capsule,extended release 24 hr hydrochlorothiazide 25 mg tablet 25 mg PO QAM 09/03/19 03/26/23 History isosorbide mononitrate 120 mg 120 mg PO QAM 09/03/19 03/26/23 History tablet,extended release 24 hr lisinopril 5 mg tablet 5 mg PO QAM 09/03/19 03/26/23 History metformin 500 mg tablet 1,000 mg PO BID 09/03/19 03/26/23 History venlafaxine 150 mg 75 mg PO QAM 09/03/19 03/26/23 History capsule,extended release 24 hr nitroglycerin 0.4 mg sublingual 0.4 mg sublingual USEASDIRECTD PRN 09/11/20 03/26/23 History tablet (Nitrostat) Chest Pain famotidine 40 mg tablet (Pepcid) 40 mg PO HS 04/13/22 03/26/23 History ondansetron 4 mg disintegrating 4 mg PO Q6H PRN Nausea 02/24/23 03/26/23 History tablet sucralfate 1 gram tablet 1 g PO ACHS 02/24/23 03/26/23 History iron,carbonyl 65 mg-vitamin C 125 1 tab PO MOWEFR@0900 03/26/23 03/26/23 History mg tablet,delayed release (Vitron-C) nystatin 100,000 unit/gram topical 1 applic topical TID 03/26/23 03/26/23 History powder umeclidinium 62.5 mcg-vilanterol 1 inh inhalation DAILY 03/26/23 03/26/23 History 25 mcg/actuation powdr for inhalation (Anoro Ellipta) Past Med/Surg History Medical History (Updated 03/26/23 @ 12:40 by Radha Butt MD) Anxiety and depression CAD (coronary artery disease) F/U ETIENNE CHISHOLM/RADHA SMITH Chest pain HX-LAST EPISODE OVER 1 MONTH AGO-NITRO RELIEVED Chronic obstructive pulmonary disease USES INHALER "OFTEN" Chronic respiratory failure Diabetes mellitus, type 2 GERD (gastroesophageal reflux disease) Hyperlipidemia Hypertension Myocardial Infarction X2 (5+ YEARS AGO) On home oxygen therapy 3L O2 ORDERED PRN AT HOME Osteoporosis Restless leg syndrome Stomach ulcer ?>REASON FOR EGD Surgical History Ganglion cyst REMOVED ON WRIST H/O total hysterectomy History of arthroscopy RT/LEFT KNEE History of cardiac cath X 3 ( NO STENTS, LAST 3 YEARS AGO) FOLLOWED BY DR. SMITH History of colonoscopy History of esophagogastroduodenoscopy (EGD) History of herniorrhaphy History of open reduction and internal fixation (ORIF) procedure LEFT ANKLE (HARDWARE INTACT) History of tooth extraction Family History Brother Family hx of colon cancer Other No family history of adverse response to anesthesia Social History Smoking Status: Former smoker Tobacco Type: Cigarettes Second Hand Exposure: No; Do You Dip or Chew Tobacco: No; Hx Alcohol Use: No Hx Substance Use: No Preferred Language: Irish Communication Ability: Effective Rating Specialist Required: No Beliefs That Will Affect Care: None Current Living Situation: Spouse Current Living Situation Comment: HAS DEMENTIA>PT HELPS TAKE CARE OF HIM current occupational status: retired Feels Safe at Home: Yes Assistive Devices: Denture - Upper and Glasses Review of Systems Review of Systems: At least 10 Review of systems were reviewed and all negative except as indicated in HPI Physical Exam Physical Exam: General:. NAD, well developed, well nourished, average body habitus HEENT:.NC in place (1L) Normocephalic and atraumatic, Normal Conjunctiva, EOMI, Sclera is non-icteric Lungs:.fair air movement b/l, CTA, no wheezing or crackles Heart:. Normal S1, S2, no murmur Abdominal:.diffuse TTP, soft, ND MSK:. No deformities of UE and LE, No leg edema Psych:. AAOx3, normal affect Results & Data Results & Data Vital Signs (Past 12 Hours) Vital Signs Temp Pulse Pulse Resp BP BP Pulse Ox 03/26/23 12:07 107 H 175/108 H 03/26/23 11:53 175/108 H 03/26/23 11:51 106 H 192/98 H 92 03/26/23 10:03 100 H 26 H 192/98 H 100 03/26/23 09:24 85 L 03/26/23 09:06 102 H 03/26/23 08:36 36.6 C 88 20 167/91 H 97 O2 Del Method O2 Flow Rate 03/26/23 12:07 03/26/23 11:53 03/26/23 11:51 Nasal Cannula 3 03/26/23 10:03 Nasal Cannula 3 03/26/23 09:24 Room Air 03/26/23 09:06 03/26/23 08:36 Room Air Laboratory Results Short CBC 03/26/23 Range/Units 09:04 WBC 11.81 H (4.8-10.8) K/ul Hgb 12.9 (12.0-16.0) g/dl Hct 39.3 (37.0-47.0) % Plt Count 290 (130-400) K/uL BMP 03/26/23 09:04 Sodium 131 L Potassium 3.8 Chloride 95 L Carbon Dioxide 27 BUN 19 Creatinine 0.88 Glucose 186 H Calcium 9.8 Liver Function 03/26/23 Range/Units 09:04 Total Bilirubin 0.6 (0.2-1.0) mg/dl AST 15 (13-39) U/L ALT 12 (7-52) U/L Alkaline Phosphatase 98 (34-104) U/L Albumin 3.7 (3.4-5.0) gm/dl Urine 03/26/23 Range/Units 09:23 Urine Color Dark Yellow Urine Appearance Turbid A (Clear) Urine pH 5.0 (4.5-7.5) Ur Specific [place] 1.030 (1.000-1.030) Urine Protein 3+ H (Negative) Urine Glucose (UA) Negative (Negative) Diagnostic Findings Abdomen/Pelvis CT 03/26/23 09:[address] WITH IV CONTRAST CT DOSE: 568.85 mGy.cm HISTORY: nausea, lower abd pain TECHNIQUE: Multiaxial CT images of the abdomen and pelvis were performed following the use of intravenous contrast. A dose lowering technique was utilized adhering to the principles of ALARA. COMPARISON STUDY: None. FINDINGS: Emphysema at the lung bases. No pneumoperitoneum. No pneumatosis. There is a small pericardial effusion. Mildly enlarged anterior pericardial lymph node measuring 1 cm. The liver, gallbladder, pancreas, spleen, and adrenal glands unremarkable. The main portal vein is patent. Moderate calcified plaque within the normal caliber abdominal aorta. Multiple enlarged lymph nodes within the distal thoracic periaortic, retrocrural, and retroperitoneal apurva stations. A dominant right retrocrural lymph node measures 3.3 x 2.6 cm. A dominant left retroperitoneal lymph node measures 3.3 x 1.9 cm. No mesenteric or pelvic l ymphadenopathy. Moderate bladder wall thickening. Prior hysterectomy. Colonic diverticulosis. No evidence for acute diverticulitis. Moderate fecal retention. No bowel wall thickening or obstruction. Normal appendix. There are few right peripelvic renal cysts. No right-sided hydronephrosis. There is moderate to severe left hydroureteronephrosis to the level of the UVJ. However, no obstructing stones identified. There is diffuse urothelial thickening within the left renal pelvis and left ureter with periureteral edema most pronounced at the left UPJ. There is a delayed left nephrogram with left perinephric edema. There are few small hypodense lesions within the left kidney which favor cysts. IMPRESSION: 1. Multiple enlarged retroperitoneal, retrocrural, and distal thoracic periaortic lymph nodes. This is highly suspicious for a neoplastic process such as a lymphoma. Follow-up oncology consultation recommended. 2. Moderate to severe left-sided hydroureteronephrosis to the level of the ureterovesical junction. However, no obstructing stones identified. There is also moderate bladder wall thickening and diffuse urothelial thickening within the left renal pelvis and left ureter. Therefore, this could be due to a left- sided pyelonephritis/cystitis. Lymphomatous involvement of the left ureter should also be considered in the differential diagnosis. The hydronephrosis could also be secondary to an occult mass or stricture at the left UVJ. Follow- up urology consultation recommended. 3. Small pericardial effusion. 4. Additional findings as described above. ACT 112: Negative or not required by law. Electronically signed by: Yoan Jean M.D. 03/26/2023 10:40 AM Code Status & VTE Plan VTE Prophylaxis Plan VTE Prophylaxis will be ordered: Yes
[2023-03-26] MEDS ORDERED: MoRPHine SULFATE 2 MG/ML CARP IV PRN (13:04)
[2023-03-26] MEDS ORDERED: DEXTROSE 50% 50 ML SYRINGE IV PRN (13:04)
[2023-03-26] MEDS ORDERED: ONDANSETRON INJ 2 MG/ML 2 ML VIAL IV PRN (13:04)
[2023-03-26] MEDS ORDERED: ACETAMINOPHEN 325 MG TAB PO PRN (13:04)
[2023-03-26] MEDS ORDERED: GLUCAGON FOR INJ 1 MG VIAL SQ PRN (13:04)
[2023-03-26] MEDS ORDERED: NITROGLYCERIN SL 0.4 MG/TAB TAB SL PRN (13:04)
[2023-03-26] MEDS ORDERED: GLUCOSE 10 TAB/TUBE PO PRN (13:04)
[2023-03-26] MEDS ORDERED: GLUCOSE 40% GEL 15 GM TUBE PO PRN (13:04)
[2023-03-26] MEDS ORDERED: ATENOLOL 25 MG TABLET PO SCH (13:04)
[2023-03-26] MEDS ORDERED: CARBOHYDRATES FOR HYPOGLYCEMIA PO PRN (13:04)
--- NOTE | 2023-03-26 13:09 | Urology Consultation ---
Date of Consultation March 26, 2023 Assessment & Plan (1) Abdominal lymphadenopathy: (2) Acute UTI (urinary tract infection): (3) Hydroureteronephrosis: (4) Pyelonephritis: (5) Chronic respiratory failure: (6) CAD (coronary artery disease): (7) Pericardial effusion: Plan New consultation for patient presenting with infection possible pyelonephritis possible pyelitis and obstruction of the kidney. Found to have significant retroperitoneal lymphadenopathy. Patient's imaging was reviewed interpreted by myself. Had CT scan showing lymph node disease with hydroureter and signs of obstruction and infection in the kidney. Discussed extensively findings with patient. Discussed concerns and issues. Discussed possible infection issues. Patient has been having increasing infection issues over the last few weeks. Has had a few years of ongoing UTI issues. Has had trouble clearing UTIs. Has not seen a urologist in the past. Patient does have a who has kidney failure issues. So she is aware of some of the kidney related issues and concerns. Currently vitals have stabilized. Temperature is 36.6. Blood pressure is 174/76. Pulse is 88. No signs of significant sepsis. Patient is on oxygenation. And is satting 96% on 3 L by nasal cannula. Patient has been on a number of antibiotics for the ongoing infections. None have particularly worked well if the infections do clear they quickly come back. Current white count is 11.81. Creatinine is 0.88. Hemoglobin is 12.9. All other vitals and labs were all reviewed and interpreted by myself. Please see the full report for all labs. Discussed extensively with patient findings. At this point major concern is current infection and managing the infectious issues. We will likely need broad-spectrum antibiotics with diabetes for the next 1 to 2 days. We will await the cultures for full assessment. We will likely be able to de-escalate to an oral agent once they are available. Once the patient is able to be de-escalated will likely need approximately 10 to 14 days of treatment depending on the species and the resistance. We will likely need set up for outpatient work-up and assessment. At this point no signs of need for urgent stent placement patient does appear to have some obstruction issues. The concern being for the enlarged lymph nodes possibly related to lymphoma causing external compression. Patient is currently afebrile and does not have signs of sepsis. Has been doing well with urine output. Creatinine is currently stable without major JOSUÉ or signs of significant post renal failure. Patient also does not have signs of bilateral obstruction. At this point patient is n.p.o. but can be transition to a diet. We will plan to monitor over the next couple days to ensure that the antibiotics are working and improving with the infection. If necessary a stent can be placed urgently or electively if issues worsen or become more severe. We will plan to monitor the patient with plans for outpatient follow-up. We will need to then fully determine the source of the ongoing issue and the possible causes of the lymphadenopathy. We will also need to determine the degree of obstruction at baseline. Will likely need outpatient work-up with outpatient imaging in order to fully assess the system once the infection has cleared. We will continue to monitor patient closely and plan for outpatient follow-up. Patient's complicated medical and surgical history was reviewed and summarized above. All imaging was reviewed interpreted by myself. All labs and vitals were reviewed. We will plan to have patient follow-up as an outpatient after completion of cou rse of antibiotics with plans for further imaging to fully evaluate the potential cause as well as for options for management of recurrent UTIs and frequent UTIs. History of Present Illness Attending Physician: Radha Butt MD History of Present Illness New consultation for patient with UTI/Pyelo, discomfort, and ill feelings. Patient developed sudden onset of pain into flank going down and radiating into groin and back in waves comes and goes. Can be severe at times. Patient has been dealing with increasing issues over the last few weeks. Has had multiple UTIs that required multiple antibiotics without major improvement of issues. The UTI issues would suddenly redevelop. Was also concerned about possible bowel issues and had ongoing increasing abdominal pain and discomfort. Has been dealing with intermittent UTIs over the last couple years. Discussed and reviewed patient's family history for any history of issues, infections, and disease. Also, discussed patient's medical/surgery history especially related to any history of urinary issues or stone disease. Patient was admitted and is undergoing observation with broad spectrum IV antibiotics. Patient had undergone imaging found to have no stone disease. Did find lymphadenopathy with likely obstruction of the kidney on the left. Patient had signs of pyelonephritis versus pyelitis and infection. Has occasional episodes of significant pain in the flank. Has also been dealing with some nausea issues. Is currently n.p.o. but is going to be able to have a diet at this point as it does not appear that she will need major intervention. Allergies Allergy/AdvReac Type Severity Reaction Status Date / Time tramadol Allergy Severe HIVES/TONGUE Verified 03/02/23 08:20 SWELLING morphine AdvReac Intermediate SEVERE N/V Verified 03/02/23 08:20 codeine AdvReac Mild NAUSEATED Verified 03/02/23 08:20 AND DIZZINESS, NO VOMITING YET. Home Medications Medication Instructions Recorded Confirmed Type albuterol sulfate 90 mcg/actuation 2 inh inhalation Q6H PRN SHORT OF 09/03/19 03/26/23 History breath activated powder inhaler BREATH (ProAir RespiClick) aspirin 81 mg tablet,delayed 81 mg PO QAM 09/03/19 03/26/23 History release atenolol 25 mg tablet 25 mg PO UD 09/03/19 03/26/23 History atorvastatin 80 mg tablet 80 mg PO HS 09/03/19 03/26/23 History diltiazem HCl 180 mg 180 mg PO QAM 09/03/19 03/26/23 History capsule,extended release 24 hr hydrochlorothiazide 25 mg tablet 25 mg PO QAM 09/03/19 03/26/23 History isosorbide mononitrate 120 mg 120 mg PO QAM 09/03/19 03/26/23 History tablet,extended release 24 hr lisinopril 5 mg tablet 5 mg PO QAM 09/03/19 03/26/23 History metformin 500 mg tablet 1,000 mg PO BID 09/03/19 03/26/23 History venlafaxine 150 mg 75 mg PO QAM 09/03/19 03/26/23 History capsule,extended release 24 hr nitroglycerin 0.4 mg sublingual 0.4 mg sublingual USEASDIRECTD PRN 09/11/20 03/26/23 History tablet (Nitrostat) Chest Pain famotidine 40 mg tablet (Pepcid) 40 mg PO HS 04/13/22 03/26/23 History ondansetron 4 mg disintegrating 4 mg PO Q6H PRN Nausea 02/24/23 03/26/23 History tablet sucralfate 1 gram tablet 1 g PO ACHS 02/24/23 03/26/23 History iron,carbonyl 65 mg-vitamin C 125 1 tab PO MOWEFR@0900 03/26/23 03/26/23 History mg tablet,delayed release (Vitron-C) nystatin 100,000 unit/gram topical 1 applic topical TID 03/26/23 03/26/23 History powder umeclidinium 62.5 mcg-vilanterol 1 inh inhalation DAILY 03/26/23 03/26/23 History 25 mcg/actuation powdr for inhalation (Anoro Ellipta) Patient History Medical History Anxiety and depression CAD (coronary artery disease) F/U ETIENNE CHISHOLM/RADHA SMITH Chest pain HX-LAST EPISODE OVER 1 MONTH AGO-NITRO RELIEVED Chronic obstructive pulmonary disease USES INHALER "OFTEN" Chronic respiratory failure Diabetes mellitus, type 2 GERD (gastroesophageal reflux disease) Hyperlipidemia Hypertension Myocardial Infarction X2 (5+ YEARS AGO) On home oxygen therapy 3L O2 ORDERED PRN AT HOME Osteoporosis Restless leg syndrome Stomach ulcer ?>REASON FOR EGD Surgical History Ganglion cyst REMOVED ON WRIST H/O total hysterectomy History of arthroscopy RT/LEFT KNEE History of cardiac cath X 3 ( NO STENTS, LAST 3 YEARS AGO) FOLLOWED BY DR. SMITH History of colonoscopy History of esophagogastroduodenoscopy (EGD) History of herniorrhaphy History of open reduction and internal fixation (ORIF) procedure LEFT ANKLE (HARDWARE INTACT) History of tooth extraction Family History Brother Family hx of colon cancer Other No family history of adverse response to anesthesia Social History Smoking Status: Former smoker Tobacco Type: Cigarettes Second Hand Exposure: No; Do You Dip or Chew Tobacco: No; Hx Alcohol Use: No Hx Substance Use: No Preferred Language: [place] Communication Ability: Effective Drupal Php Developer Required: No Beliefs That Will Affect Care: None Current Living Situation: Spouse Current Living Situation Comment: HAS DEMENTIA>PT HELPS TAKE CARE OF HIM current occupational status: retired Feels Safe at Home: Yes Assistive Devices: Denture - Upper and Glasses Review of Systems Review of Systems: All systems reviewed & are unremarkable except as noted in HPI & below Physical Exam Physical Exam: General: Alert and oriented x 3 in no acute distress. Patient is well nourished and well kept. HEENT: Normocephalic Atraumatic. Inspection normal. Cranial Nerves 2-12 Grossly intact. Nares are clear. Neck is supple. Normal inspection of face. Normal inspection of neck. Neurologic: No deficits on inspection. Baseline for motor function and sensory. Psychologic: Normal affect. Respiratory: Nonlabored. No use of accessory muscles. No tachypnea or dyspnea. Cardiovascular: No tachycardia Skin: [place] and Dry. No rashes or visible lesions. Extremities: Moving without issues. No motor deficits on inspection Abdomen: Soft Non-distended. No acites. No rebound or guarding. Results & Data Vital Signs (Past 12 Hours) Vital Signs Temp Pulse Pulse Resp BP BP Pulse Ox 03/26/23 12:30 88 16 174/96 H 96 03/26/23 12:07 107 H 175/108 H 03/26/23 11:53 175/108 H 03/26/23 11:51 106 H 192/98 H 92 03/26/23 10:03 100 H 26 H 192/98 H 100 03/26/23 09:24 85 L 03/26/23 09:06 102 H 03/26/23 08:36 36.6 C 88 20 167/91 H 97 O2 Del Method O2 Flow Rate 03/26/23 12:30 Nasal Cannula 3 03/26/23 12:07 03/26/23 11:53 03/26/23 11:51 Nasal Cannula 3 03/26/23 10:03 Nasal Cannula 3 03/26/23 09:24 Room Air 03/26/23 09:06 03/26/23 08:36 Room Air PG Care Time/CCT Total # of Minutes Spent Total Time Spent with Patient: Total time spent is greater than 50% in coordination of care (as documented) at patient's floor/unit and/or counseling patient: Coding Level of Care Code 31510 INT INP/OBS CARE 3/75MIN Diagnoses Abdominal lymphadenopathy R59.0 Acute UTI (urinary tract infection) N39.0 Hydroureteronephrosis N13.30 Pyelonephritis N12 Chronic respiratory failure J96.10 CAD (coronary artery disease) I25.10 Pericardial effusion I31.39
[2023-03-26] MEDS ORDERED: ALBUTEROL HFA 8 GM INHALER INH PRN (13:33)
--- NOTE | 2023-03-26 13:33 | Electrocardiogram Report ---
Test Reason : Blood Pressure : / mmHG Vent. Rate : 112 BPM Atrial Rate : 112 BPM P-R Int : 182 ms QRS Dur : 066 ms QT Int : 340 ms P-R-T Axes : 080 083 051 degrees QTc Int : 464 ms Sinus tachycardia with occasional Premature ventricular complexes Possible Left atrial enlargement Nonspecific ST abnormality Abnormal ECG When compared with ECG of 04-JUL-2004 11:24, Premature ventricular complexes are now Present ST changes are unchnaged Confirmed by Sina Moyer ([id number]) on 03/26/2023 1:32:53 PM Referred By: Confirmed By:Sina Moyer
--- NOTE | 2023-03-26 13:51 | CT Scan Report ---
CHEST CT WITH CONTRAST CT DOSE: 429.11 mGy.cm HISTORY: Lymphadenopathy. Neoplastic workup. TECHNIQUE: Multiaxial CT images of the chest were performed following the intravenous administration of contrast. A dose lowering technique was utilized adhering to the principles of ALARA. COMPARISON: Abdomen and pelvis CT 03/26/2023. FINDINGS: No suspicious lytic or blastic osseous lesions. The central airways are patent. Moderate em physema. No pneumothorax. No pleural effusions. There is a 3 mm nodule within the left lung apex on i mage 47. Small linear densities within the lingula and right lung base favor subsegmental atelectasis or scarring. There is a 4 mm subpleural nodule within the right lower lobe medially on image 163. Th ere is a 4 mm subpleural nodule along the right major fissure on image 137. There is a 2 mm right api vida nodule on image 34. There is a 3 mm subpleural nodule within the right minor fissure on image 182 . These are low suspicion but require follow-up to ensure stability. No axillary lymphadenopathy. The thyroid gland enhances normally. Normal caliber esophagus. A small pericardial effusion is noted. Th e heart is mildly enlarged. There are moderate to severe coronary artery calcifications present. Calc ified plaque within the normal caliber thoracic aorta. No evidence for an aortic dissection. The cent ral pulmonary arteries are patent. There is extensive mediastinal lymphadenopathy and a few mildly en larged bilateral hilar lymph nodes. A dominant anterior mediastinal lymph node measures 4.8 x 3.2 cm. A dominant subcarinal lymph node measures 4.2 x 3.5 cm. There is a single left supra clavicular/supe rior mediastinal lymph node on image 16 which measures 2.4 cm. The abdominal structures are better ap preciated on the same day abdomen and pelvis CT. IMPRESSION: 1. Extensive mediastinal lymphadenopathy with a few mildly enlarged bilateral hilar lymph nodes. This likely represents a neoplastic process such as a lymphoma. 2. Small pericardial effusion. 3. A few scattered subcentimeter pulmonary nodules which measure up to 4 mm as described above. These are low suspicion. However, [address] follow-up recommended to ensure stability. 4. The abdominal structures are better appreciated on the same day abdomen and pelvis CT. 5. Emphysema. ACT 112: Negative or not required by law. Electronically signed by: Yoan Jean M.D. 03/26/2023 1:49 PM
[2023-03-26] MEDS: dilTIAZem HCL 180 MG CAPCR PO SCH (14:56)
[2023-03-26] MEDS: lisinopril 5 MG TAB PO SCH (14:56)
[2023-03-26] MEDS: ENOXAPARIN INJ 40 MG/0.4 ML SYR SQ SCH (14:56)
[2023-03-26] MEDS: ISOSORBIDE MONO EXTENDED REL 60 MG TABCR PO SCH (14:56)
[2023-03-26] MEDS: KETOROLAC TROMETHAMINE 10 MG TABLET PO PRN (16:03)
[2023-03-26] MEDS: INSULIN ASPART PER UNIT CHARGE SC SCH ×2 (16:42→20:24)
[2023-03-26] MEDS: SUCRALFATE 1 GM TAB PO SCH ×2 (16:43→20:18)
[2023-03-26] MEDS: ATENOLOL 25 MG TABLET PO SCH (20:15)
[2023-03-26] MEDS: ATORVASTATIN 40 MG TAB PO SCH (20:17)
[2023-03-26] MEDS: FAMOTIDINE 40 MG TABLET PO SCH (20:18)
[2023-03-27] MEDS: KETOROLAC TROMETHAMINE 10 MG TABLET PO PRN (02:42)
[2023-03-27 06:13] LABS: Basophils # (auto) 0.03 K/uL (0-0.2); Basophils % (auto) 0.3 %; Eosinophils # (auto) 0.19 K/uL (0-0.50); Eosinophils % (auto) 1.9 %; Hematocrit (blood only) 32.4 % (37.0-47.0); Hemoglobin 10.1 g/dl (12.0-16.0); Immature Granulocytes # (auto) 0.04 K/uL (0.01-0.20); Immature Granulocytes % (auto) 0.4 %; Lymphocytes # (auto) 1.03 K/uL (1.2-3.4); Lymphocytes % (auto) 10.4 %; Mean Corpuscular Hemoglobin 24.4 pg (25.0-34.0); Mean Corpuscular Hgb Conc 31.2 g/dL (32.0-36.0); Mean Corpuscular Volume 78.3 fL (80.0-100.0); Mean Platelet Volume 8.7 fL (9.4-12.4); Monocytes # (auto) 0.89 K/uL (0.11-0.59); Neutrophils # (auto) 7.69 K/uL (1.40-6.50); Platelet Count 241 K/uL (130-400); RDW Coefficient of Variation 14.8 % (11.5-14.5); RDW Standard Deviation 41.9 fL (36.4-46.3); Red Blood Count 4.14 M/uL (4.20-5.40); White Blood Count 9.87 K/ul (4.8-10.8)
[2023-03-27 06:49] LABS: Albumin Globulin Ratio 0.6 (0.9-2); Albumin Level 2.9 gm/dl (3.4-5.0); BUN Creatinine Ratio 22.1 (10-20); Bilirubin,Total 0.4 mg/dl (0.2-1.0); Calcium 8.5 mg/dl (8.6-10.3); Creatinine Clr Calc Pharmacy 50.5 ml/min; Est GFR (African American) 55.8 ml/min; Est GFR (Non-African American) 48.2 ml/min; Globulin 4.5 gm/dl (2.5-4.0); Magnesium 1.6 mg/dl (1.7-2.4); Potassium 4.6 mmol/L (3.5-5.1); Total Protein 7.4 gm/dl (6.0-8.3)
[2023-03-27] MEDS: SUCRALFATE 1 GM TAB PO SCH ×4 (08:58→20:55)
[2023-03-27] MEDS: UMECLIDINIUM/VILANTEROL 62.5/25MCG 7 PUFFS/INHALER INH SCH (08:58)
[2023-03-27] MEDS: hydroCHLOROthiazide 25 MG TAB PO SCH (08:59)
[2023-03-27] MEDS: ISOSORBIDE MONO EXTENDED REL 60 MG TABCR PO SCH (08:59)
[2023-03-27] MEDS: VENLAFAXINE HCL XR 75 MG CAPXR PO SCH (08:59)
[2023-03-27] MEDS: ASPIRIN 81 MG ECTAB PO SCH (08:59)
[2023-03-27] MEDS: dilTIAZem HCL 180 MG CAPCR PO SCH (09:00)
[2023-03-27] MEDS: ATENOLOL 25 MG TABLET PO SCH ×2 (09:00→20:55)
[2023-03-27] MEDS: lisinopril 5 MG TAB PO SCH (09:01)
[2023-03-27] MEDS ORDERED: MoRPHine SULFATE 2 MG/ML CARP IV PRN (09:05)
--- NOTE | 2023-03-27 09:05 | Consultation ---
Date of Consultation March 27, 2023 Assessment & Plan (1) Abdominal lymphadenopathy: Presence of similar adenopathy in chest does suggest that this is more than just regionally reactive adenopathy to her possible urinary tract infection. This is further in the context of a long period of weight loss. Certainly a lymphoproliferative disorder is on the differential which might have impact not only on the adenopathy but on the anemia as discussed separately. With a long smoking history a lung malignancy would be of concern though there is nothing to suggest a highly suspicious lung primary on imaging. Bladder cancer is also increased in the context of that smoking history with some thickening both in the bladder and renal pelvis noted on CT imaging. Left-sided abdominal adenopathy may be accessible by CT-guided needle biopsy, I have left a message with the IR team to see if that would be feasible. If we cannot easily obtain diagnostic material from the abdomen, alternative would be EBUS sampling of mediastinal adenopathy by pulmonary medicine. (2) Pyelonephritis: Urology has seen the patient and feels that antibiotics are appropriate and sufficient for now though they will monitor the possible evolution of ureteral obstruction. The latter may be alternatively addressable if we quickly find a treatable cause for the lymphadenopathy. Given the possibility of lymphoproliferative disorder we will check immunoglobulin levels to make sure that hypogammaglobulinemia is not present that might potentially interfere with the (3) Anemia: Patient upon hydration does have a microcytic anemia which has been attributed to iron deficiency but I do not see laboratory studies confirming that. Microcytic anemia might also be seen in the face of anemia of chronic disease. With the suspicion of possible lymphoma, there will also be the differential diagnostic possibility of lymphomatous infiltration of the marrow. Full anemia work-up with reticulocyte count, nutritional studies has been requested and is pending and we also await peripheral smear review by pathology Plan 1. Immediate priority is dealing with the infection as outlined by the urology and hospitalist teams 2. With the suspicion of lymphoproliferative disorder, will check immunoglobulin levels to make sure that supplemental IVIG is not required to help optimally overcome her infection 3. I have left a message with the IR team to assess for possible diagnostic biopsy from the retroperitoneal lymphadenopathy. If that is not feasible, may need to consider EBUS sampling of the mediastinal nodes. Expeditious diagnosis may be helpful in identifying treatable disorders that could reduce the adenopathy and noninvasively ameliorate the evolving ureteral obstruction. A firm diagnosis will also be important to set the stage with appropriate understanding of the underlying process to best offer prognosis and potential treatment option information to the patient 4. Anemia work-up is underway History of Present Illness Reason for Consultation: Pathologic adenopathy in a woman presenting with urinary tract infection and possible evolving ureteral Attending Physician: Yulisa Pedraza, DO History of Present Illness Please note that this is a consultation constructed purely from review of the electronic database. I am working remotely and unable to speak directly with the patient or examine her. I reviewed the current admission records which seem to be an accurate source of relevant information but I am completely reliant on that for my conclusions and perspectives. If there are urgent concerns regarding the need for more direct [id number] review, you should consider transferring the patient to another institution. I can follow up with the patient in a [id number] meeting 0tuesday if she remains hospitalized to augment my assessment and recommendations if desired and will monitor her record from time to time in the interim with additional comment if that seems relevant. The evaluation is consultative in nature and all patient care and treatment decisions can either be accepted or rejected by the patient's primary hospital- based treating physician using their own independent medical judgment for the patient. No history of tobacco use 1 pack/day for 50 years though she quit in 2009. Note also that she has had GI work-up over the last year, a 04/15/2022 colonoscopy for rectal bleeding that showed a rectal polyp and diverticulosis. Histology was most consistent with a hyperplastic polyp. We note 2019 pathology from colonoscopy did show tubular adenoma and several hyperplastic polyps. An EGD done 03/02/2023 for abdominal discomfort and 20 lb weight loss over 6 months was relatively unremarkable with gastric and duodenal biopsies showing only mild inflammation. She is now admitted with a several week history of worsening abdominal pain and a picture of pyelonephritis with potential involving extrinsic compression ureteral obstruction Allergies Allergy/AdvReac Type Severity Reaction Status Date / Time tramadol Allergy Severe HIVES/TONGUE Verified 03/02/23 08:20 SWELLING morphine AdvReac Intermediate SEVERE N/V Verified 03/02/23 08:20 codeine AdvReac Mild NAUSEATED Verified 03/02/23 08:20 AND DIZZINESS, NO VOMITING YET. Home Medications Medication Instructions Recorded Confirmed Type albuterol sulfate 90 mcg/actuation 2 inh inhalation Q6H PRN SHORT OF 09/03/19 03/26/23 History breath activated powder inhaler BREATH (ProAir RespiClick) aspirin 81 mg tablet,delayed 81 mg PO QAM 09/03/19 03/26/23 History release atenolol 25 mg tablet 25 mg PO UD 09/03/19 03/26/23 History atorvastatin 80 mg tablet 80 mg PO HS 09/03/19 03/26/23 History diltiazem HCl 180 mg 180 mg PO QAM 09/03/19 03/26/23 History capsule,extended release 24 hr hydrochlorothiazide 25 mg tablet 25 mg PO QAM 09/03/19 03/26/23 History isosorbide mononitrate 120 mg 120 mg PO QAM 09/03/19 03/26/23 History tablet,extended release 24 hr lisinopril 5 mg tablet 5 mg PO QAM 09/03/19 03/26/23 History metformin 500 mg tablet 1,000 mg PO BID 09/03/19 03/26/23 History venlafaxine 150 mg 75 mg PO QAM 09/03/19 03/26/23 History capsule,extended release 24 hr nitroglycerin 0.4 mg sublingual 0.4 mg sublingual USEASDIRECTD PRN 09/11/20 03/26/23 History tablet (Nitrostat) Chest Pain famotidine 40 mg tablet (Pepcid) 40 mg PO HS 04/13/22 03/26/23 History ondansetron 4 mg disintegrating 4 mg PO Q6H PRN Nausea 02/24/23 03/26/23 History tablet sucralfate 1 gram tablet 1 g PO ACHS 02/24/23 03/26/23 History iron,carbonyl 65 mg-vitamin C 125 1 tab PO MOWEFR@0900 03/26/23 03/26/23 History mg tablet,delayed release (Vitron-C) nystatin 100,000 unit/gram topical 1 applic topical TID 03/26/23 03/26/23 History powder umeclidinium 62.5 mcg-vilanterol 1 inh inhalation DAILY 03/26/23 03/26/23 History 25 mcg/actuation powdr for inhalation (Anoro Ellipta) Patient History Medical History Anxiety and depression CAD (coronary artery disease) F/U ETIENNE CHISHOLM/RADHA SMITH Chest pain HX-LAST EPISODE OVER 1 MONTH AGO-NITRO RELIEVED Chronic obstructive pulmonary disease USES INHALER "OFTEN" Chronic respiratory failure Diabetes mellitus, type 2 GERD (gastroesophageal reflux disease) Hyperlipidemia Hypertension Myocardial Infarction X2 (5+ YEARS AGO) On home oxygen therapy 3L O2 ORDERED PRN AT HOME Osteoporosis Restless leg syndrome Stomach ulcer ?>REASON FOR EGD Surgical History Ganglion cyst REMOVED ON WRIST H/O total hysterectomy History of arthroscopy RT/LEFT KNEE History of cardiac cath X 3 ( NO STENTS, LAST 3 YEARS AGO) FOLLOWED BY DR. SMITH History of colonoscopy History of esophagogastroduodenoscopy (EGD) History of herniorrhaphy History of open reduction and internal fixation (ORIF) procedure LEFT ANKLE (HARDWARE INTACT) History of tooth extraction Family History Brother Family hx of colon cancer Other No family history of adverse response to anesthesia Social History Smoking Status: Former smoker Tobacco Type: Cigarettes Second Hand Exposure: No; Do You Dip or Chew Tobacco: No; Hx Alcohol Use: No Hx Substance Use: No Preferred Language: Chinese Communication Ability: Effective Yard Cleaner Required: No Beliefs That Will Affect Care: None Current Living Situation: Spouse Current Living Situation Comment: Takes care of spouse with dementia and d ialysis current occupational status: retired Feels Safe at Home: Yes Assistive Devices: Denture - Upper Physical Exam Physical Exam: Vital signs are currently stable This is a remote consultation so I was not able to do an exam myself but review of the hospitalist and urological consultants exams suggest a soft abdomen with mild tenderness but no guarding or acute changes, reasonably stable lung and cardiac exams, overall the patient appears not to be "toxic" Results & Data Vital Signs (Past 12 Hours) Vital Signs Temp Pulse Pulse Resp BP Pulse Ox O2 Del Method 03/27/23 08:04 36.4 C L 85 18 127/75 96 Room Air 03/27/23 03:48 37.0 C 85 18 133/81 95 Nasal Cannula 03/27/23 01:37 78 03/26/23 23:22 36.9 C 80 18 121/54 L 98 Nasal Cannula O2 Flow Rate 03/27/23 08:04 03/27/23 03:48 2 03/27/23 01:37 03/26/23 23:22 2 Laboratory Results Laboratory Results - last 24 hr 03/26/23 03/26/23 03/26/23 09:04 09:04 09:04 WBC 11.81 H RBC 5.18 Hgb 12.9 Hct 39.3 MCV 75.9 L MCH 24.9 L MCHC 32.8 RDW Std Deviation 41.1 RDW Coeff of Rajendra 15.0 H Plt Count 290 MPV 8.6 L Immature Gran % (Auto) 0.4 Neut % (Auto) 88.9 Lymph % (Auto) 5.1 [place] % (Auto) 5.3 Eos % (Auto) 0.1 Baso % (Auto) 0.2 Neut # (Auto) 10.50 H Lymph # (Auto) 0.60 L [place] # (Auto) 0.63 H Eos # (Auto) 0.01 Baso # (Auto) 0.02 Immature Gran # (Auto) 0.05 Peripher Smr Path Cons Pending Sodium 131 L Potassium 3.8 Chloride 95 L Carbon Dioxide 27 Anion Gap 9 BUN 19 Creatinine 0.88 Est Cr Clr Drug Dosing 64.1 Est GFR ( Amer) 75.5 Est GFR (Non-Af Amer) 65.2 BUN/Creatinine Ratio 21.6 H Glucose 186 H POC Glucose Lactate 1.9 Calcium 9.8 Magnesium Total Bilirubin 0.6 AST 15 ALT 12 Alkaline Phosphatase 98 Troponin I High Sens 7.6 Total Protein 9.1 H Albumin 3.7 Globulin 5.4 H Albumin/Globulin Ratio 0.7 L Lipase 27 Urine Color Urine Appearance Urine pH Ur Specific [place] Urine Protein Urine Glucose (UA) Urine Ketones Urine Blood Urine Nitrite Urine Bilirubin Urine Urobilinogen Ur Leukocyte Esterase Urine WBC (Auto) Urine RBC (Auto) U Hyaline Cast (Auto) U Epithel Cells (Auto) Urine Bacteria (Auto) Granular Casts SARS-CoV-2, RNA, NAAT 03/26/23 03/26/23 03/26/23 09:22 09:23 16:23 WBC RBC Hgb Hct MCV MCH MCHC RDW Std Deviation RDW Coeff of Rajendra Plt Count MPV Immature Gran % (Auto) Neut % (Auto) Lymph % (Auto) [place] % (Auto) Eos % (Auto) Baso % (Auto) Neut # (Auto) Lymph # (Auto) [place] # (Auto) Eos # (Auto) Baso # (Auto) Immature Gran # (Auto) Peripher Smr Path Cons Sodium Potassium Chloride Carbon Dioxide Anion Gap BUN Creatinine Est Cr Clr Drug Dosing Est GFR ( Amer) Est GFR (Non-Af Amer) BUN/Creatinine Ratio Glucose POC Glucose 136 H Lactate Calcium Magnesium Total Bilirubin AST ALT Alkaline Phosphatase Troponin I High Sens Total Protein Albumin Globulin Albumin/Globulin Ratio Lipase Urine Color Dark Yellow Urine Appearance Turbid A Urine pH 5.0 Ur Specific [place] 1.030 Urine Protein 3+ H Urine Glucose (UA) Negative Urine Ketones Trace H Urine Blood 2+ H Urine Nitrite Negative Urine Bilirubin Negative Urine Urobilinogen Negative Ur Leukocyte Esterase Negative Urine WBC (Auto) 10-30 H Urine RBC (Auto) 0-4 U Hyaline Cast (Auto) 1-5 U Epithel Cells (Auto) >30 H Urine Bacteria (Auto) 1+ H Granular Casts 1-5 H SARS-CoV-2, RNA, NAAT NEGATIVE 03/26/23 03/27/23 03/27/23 20:23 05:39 05:39 WBC 9.87 RBC 4.14 L Hgb 10.1 L Hct 32.4 L MCV 78.3 L MCH 24.4 L MCHC 31.2 L RDW Std Deviation 41.9 RDW Coeff of Rajendra 14.8 H Plt Count 241 MPV 8.7 L Immature Gran % (Auto) 0.4 Neut % (Auto) 78.0 Lymph % (Auto) 10.4 [place] % (Auto) 9.0 Eos % (Auto) 1.9 Baso % (Auto) 0.3 Neut # (Auto) 7.69 H Lymph # (Auto) 1.03 L [place] # (Auto) 0.89 H Eos # (Auto) 0.19 Baso # (Auto) 0.03 Immature Gran # (Auto) 0.04 Peripher Smr Path Cons Sodium 132 L Potassium 4.6 D Chloride 97 L Carbon Dioxide 30 Anion Gap 5 BUN 25 H Creatinine 1.13 Est Cr Clr Drug Dosing 50.5 Est GFR ( Amer) 55.8 Est GFR (Non-Af Amer) 48.2 BUN/Creatinine Ratio 22.1 H Glucose 127 H POC Glucose 123 H Lactate Calcium 8.5 L Magnesium 1.6 L Total Bilirubin 0.4 AST 16 ALT 10 Alkaline Phosphatase 72 Troponin I High Sens Total Protein 7.4 Albumin 2.9 L Globulin 4.5 H Albumin/Globulin Ratio 0.6 L Lipase Urine Color Urine Appearance Urine pH Ur Specific [place] Urine Protein Urine Glucose (UA) Urine Ketones Urine Blood Urine Nitrite Urine Bilirubin Urine Urobilinogen Ur Leukocyte Esterase Urine WBC (Auto) Urine RBC (Auto) U Hyaline Cast (Auto) U Epithel Cells (Auto) Urine Bacteria (Auto) Granular Casts SARS-CoV-2, RNA, NAAT 03/27/23 07:12 WBC RBC Hgb Hct MCV MCH MCHC RDW Std Deviation RDW Coeff of Rajendra Plt Count MPV Immature Gran % (Auto) Neut % (Auto) Lymph % (Auto) [place] % (Auto) Eos % (Auto) Baso % (Auto) Neut # (Auto) Lymph # (Auto) [place] # (Auto) Eos # (Auto) Baso # (Auto) Immature Gran # (Auto) Peripher Smr Path Cons Sodium Potassium Chloride Carbon Dioxide Anion Gap BUN Creatinine Est Cr Clr Drug Dosing Est GFR ( Amer) Est GFR (Non-Af Amer) BUN/Creatinine Ratio Glucose POC Glucose 158 H Lactate Calcium Magnesium Total Bilirubin AST ALT Alkaline Phosphatase Troponin I High Sens Total Protein Albumin Globulin Albumin/Globulin Ratio Lipase Urine Color Urine Appearance Urine pH Ur Specific [place] Urine Protein Urine Glucose (UA) Urine Ketones Urine Blood Urine Nitrite Urine Bilirubin Urine Urobilinogen Ur Leukocyte Esterase Urine WBC (Auto) Urine RBC (Auto) U Hyaline Cast (Auto) U Epithel Cells (Auto) Urine Bacteria (Auto) Granular Casts SARS-CoV-2, RNA, NAAT Diagnostic Findings Abdomen/Pelvis CT 03/26/23 09:[address] WITH IV CONTRAST CT DOSE: 568.85 mGy.cm HISTORY: nausea, lower abd pain TECHNIQUE: Multiaxial CT images of the abdomen and pelvis were performed following the use of intravenous contrast. A dose lowering technique was utilized adhering to the principles of ALARA. COMPARISON STUDY: None. FINDINGS: Emphysema at the lung bases. No pneumoperitoneum. No pneumatosis. There is a small pericardial effusion. Mildly enlarged anterior pericardial lymph node measuring 1 cm. The liver, gallbladder, pancreas, spleen, and adrenal glands unremarkable. The main portal vein is patent. Moderate calcified plaque within the normal caliber abdominal aorta. Multiple enlarged lymph nodes within the distal thoracic periaortic, retrocrural, and retroperitoneal apurva stations. A dominant right retrocrural lymph node measures 3.3 x 2.6 cm. A dominant left retroperitoneal lymph node measures 3.3 x 1.9 cm. No mesenteric or pelvic lymphadenopathy. Moderate bladder wall thickening. Prior hysterectomy. Colonic diverticulosis. No evidence for acute diverticulitis. Moderate fecal retention. No bowel wall thickening or obstruction. Normal appendix. There are few right peripelvic renal cysts. No right-sided hydronephrosis. There is moderate to severe left hydroureteronephrosis to the level of the UVJ. However, no obs tructing stones identified. There is diffuse urothelial thickening within the left renal pelvis and left ureter with periureteral edema most pronounced at the left UPJ. There is a delayed left nephrogram with left perinephric edema. There are few small hypodense lesions within the left kidney which favor cysts. IMPRESSION: 1. Multiple enlarged retroperitoneal, retrocrural, and distal thoracic periaortic lymph nodes. This is highly suspicious for a neoplastic process such as a lymphoma. Follow-up oncology consultation recommended. 2. Moderate to severe left-sided hydroureteronephrosis to the level of the ureterovesical junction. However, no obstructing stones identified. There is also moderate bladder wall thickening and diffuse urothelial thickening within the left renal pelvis and left ureter. Therefore, this could be due to a left- sided pyelonephritis/cystitis. Lymphomatous involvement of the left ureter should also be considered in the differential diagnosis. The hydronephrosis could also be secondary to an occult mass or stricture at the left UVJ. Follow- up urology consultation recommended. 3. Small pericardial effusion. 4. Additional findings as described above. ACT 112: Negative or not required by law. Electronically signed by: Yoan Jean M.D. 03/26/2023 10:[address] 03/26/23 12:[address] CONTRAST CT DOSE: 429.11 mGy.cm HISTORY: Lymphadenopathy. Neoplastic workup. TECHNIQUE: Multiaxial CT images of the chest were performed following the intravenous administration of contrast. A dose lowering technique was utilized adhering to the principles of ALARA. COMPARISON: Abdomen and pelvis CT 03/26/2023. FINDINGS: No suspicious lytic or blastic osseous lesions. The central airways are patent. Moderate emphysema. No pneumothorax. No pleural effusions. There is a 3 mm nodule within the left lung apex on image 47. Small linear densities within the lingula and right lung base favor subsegmental atelectasis or scarring. There is a 4 mm subpleural nodule within the right lower lobe medially on image 163. There is a 4 mm subpleural nodule along the right major fissure on image 137. There is a 2 mm right apical nodule on image 34. There is a 3 mm subpleural nodule within the right minor fissure on image 182. These are low suspicion but require follow-up to ensure stability. No axillary lymphadeno candi. The thyroid gland enhances normally. Normal caliber esophagus. A small pericardial effusion is noted. The heart is mildly enlarged. There are moderate to severe coronary artery calcifications present. Calcified plaque within the normal caliber thoracic aorta. No evidence for an aortic dissection. The central pulmonary arteries are patent. There is extensive mediastinal lymphadenopathy and a few mildly enlarged bilateral hilar lymph nodes. A dominant anterior mediastinal lymph node measures 4.8 x 3.2 cm. A dominant subcarinal lymph node measures 4.2 x 3.5 cm. There is a single left supra clavicular/superior mediastinal lymph node on image 16 which measures 2.4 cm. The abdominal structures are better appreciated on the same day abdomen and pelvis CT. IMPRESSION: 1. Extensive mediastinal lymphadenopathy with a few mildly enlarged bilateral hilar lymph nodes. This likely represents a neoplastic process such as a lymphoma. 2. Small pericardial effusion. 3. A few scattered subcentimeter pulmonary nodules which measure up to 4 mm as described above. These are low suspicion. However, [address] follow-up recommended to ensure stability. 4. The abdominal structures are better appreciated on the same day abdomen and pelvis CT. 5. Emphysema. ACT 112: Negative or not required by law. Electronically signed by: Yoan Jean M.D. 03/26/2023 1:49 PM PG Care Time/CCT Total # of Minutes Spent Total Time Spent with Patient: Total time spent is greater than 50% in coordination of care (as documented) at patient's floor/unit and/or counseling patient: [place] [address] IN/OBS CONSULT LVL 3,45M Patient Type New History Expanded Problem Focused Medical Decision Making Moderate Complexity Diagnoses Abdominal lymphadenopathy R59.0 Pyelonephritis N12 Anemia D64.9
--- NOTE | 2023-03-27 09:06 | Hospitalist Progress Note ---
Date of Service March 27, 2023 Assessment & Plan (1) Pyelonephritis: (2) Hydroureteronephrosis: (3) Retroperitoneal lymphadenopathy: (4) Pericardial effusion: (5) Hypertensive urgency: (6) Chronic respiratory failure: (7) Diabetes mellitus, type 2: (8) CAD (coronary artery disease): (9) Hyperlipidemia: Plan L sided abd pain with nausea: -2/2 Pyelo with hydroureteronephrosis with Retroperitoneal/periaortic lymph nodes -UCx and BCx sent ---- previous UCx outpt sensitive to cephalosporin ---- will continue ceftriaxone pending culture results. - CT abd: Moderate to severe left-sided hydroureteronephrosis to the level of the ureterovesical junction. However, no obstructing stones identified. ----- hydronephrosis worsened compared to CT abd from 09/2022 (Results in the HPI) -Urology consulted: recommend to continue with abx, no cysto at this time with good UOP and clinical improvement overnight. Abnormal lymph nodes on CT c/a/p -suspicious for lymphoma -no prior hx of lymphoma -cont with workup per oncology. -possible IR biopsy of lymph node in am. Will keep NPO p MN in case this can be done in am. Small pericardial effusion with hx of CAD: echo this morning reveals no evidence of pericardial effusion Grade II diastolic dysfunction HTN urgency: on admission 2/2 medication noncompliance resolved. Cont current medications. Chronic respiratory failure with COPD on 3L: -appeared well and maintained SpO2>88 with 1 L - will continue home inhalers -breathing at her baseline. DMII: -hold metformin -ISS Iron def anemia/GERD/HLD/Depression: -continue home meds -hgb is better Diet: DMII DVT PPx: Lovenox Code Status:FULL CODE Dispo- to home after clinically stable on PO antibiotics and after lymph node biopsy. Yulisa Pedraza DO [facility] Hospitalist Admission and Anticipated Discharge Date Admission Date: March 26, 2023 Subjective 72 yo F presented with left sided abdominal pain, workup revealed acute pyelonep hritis possible lymphoma given mediastinal and paraaortic LAD seen throughout her cat scans yesterday I discussed these findings with the patient, her sister and her daughter We reviewed the labwork We discussed the process of obtaining a lymph node biopsy to find out the cause of the enlargement We discussed that infection can cause lymph nodes to react She states she has had a UTI for two years? She feels drastically improved with the antibiotics We reviewed Urology plan to cont with antibiotics and avoid procedure at this time She will need to follow with them as outpatient Oncology is working up anemia further and guiding diagnosis process she is very happy because she finally ate a really good meal today She reports 50lb weight loss in last few months and appetite was poor. Review of Systems Review of Systems: All systems were reviewed and negative except as indicated on HPI above. Physical Exam Physical Exam: CONSTITUTIONAL: WNWD, vitals as above, generally well-appearing EYES: normal conjunctivae, no scleral icterus ENT: external ear and nose normal, NECK: trachea midline RESPIRATORY: clear to auscultation bilaterally, no crackles, rales or wheezes, normal respiratory effort CARDIOVASCULAR: regular rate and rhythm, S1 and 2 heard without murmurs, gallops or rubs, no JVD, no peripheral edema CHEST: inspection of chest was normal GASTROINTESTINAL: soft, diffuse discomfort, cheyanne in LLQ and epigastric region. no guarding, no CVA tenderness MUSCULOSKELETAL: strength 5/5 throughout, head is normocephalic and atraumatic SKIN: warm and dry, NEUROLOGIC: CN 2-12 grossly intact, no sensory deficit, normal cognition, normal speech, no tremor PSYCHIATRIC: alert cooperative and oriented to person, place and time. Results & Data Results & Data Vital Signs (Past 12 Hours) Vital Signs Temp Pulse Pulse Resp BP Pulse Ox O2 Del Method 03/27/23 08:04 36.4 C L 85 18 127/75 96 Room Air 03/27/23 03:48 37.0 C 85 18 133/81 95 Nasal Cannula 03/27/23 01:37 78 03/26/23 23:22 36.9 C 80 18 121/54 L 98 Nasal Cannula O2 Flow Rate 03/27/23 08:04 03/27/23 03:48 2 03/27/23 01:37 03/26/23 23:22 2 Laboratory Results Short CBC 03/26/23 03/27/23 Range/Units 09:04 05:39 WBC 11.81 H 9.87 (4.8-10.8) K/ul Hgb 12.9 10.1 L (12.0-16.0) g/dl Hct 39.3 32.4 L (37.0-47.0) % Plt Count 290 241 (130-400) K/uL BMP 03/26/23 03/27/23 09:04 05:39 Sodium 131 L 132 L Potassium 3.8 4.6 D Chloride 95 L 97 L Carbon Dioxide 27 30 BUN 19 25 H Creatinine 0.88 1.13 Glucose 186 H 127 H Calcium 9.8 8.5 L Liver Function 03/26/23 03/27/23 Range/Units 09:04 05:39 Total Bilirubin 0.6 0.4 (0.2-1.0) mg/dl AST 15 16 (13-39) U/L ALT 12 10 (7-52) U/L Alkaline Phosphatase 98 72 (34-104) U/L Albumin 3.7 2.9 L (3.4-5.0) gm/dl Urine 03/26/23 Range/Units 09:23 Urine Color Dark Yellow Urine Appearance Turbid A (Clear) Urine pH 5.0 (4.5-7.5) Ur Specific [place] 1.030 (1.000-1.030) Urine Protein 3+ H (Negative) Urine Glucose (UA) Negative (Negative) Medications Administered Current Inpatient Medications Acetaminophen (Acetaminophen 500 Mg Tab) 1,000 mg PO Q8H [facility] Stop: 04/26/23 09:14 Albuterol (Albuterol Hfa 8 Gm Inhaler) 2 puffs INH Q6H PRN PRN Reason: SHORT OF BREATH Stop: 04/25/23 13:32 Ascorbic Acid (Ascorbic Acid 500 Mg Tab) 250 mg PO MoWeFr@0900 [facility] Stop: 04/27/23 08:59 Aspirin (Aspirin 81 Mg Ectab) 81 mg PO QA [facility] Stop: 04/26/23 08:59 Last Admin: 03/27/23 08:59 Dose: 81 mg Atenolol (Atenolol 25 Mg Tablet) 37.5 mg PO QAM [facility] Stop: 04/26/23 08:59 Last Admin: 03/27/23 09:00 Dose: 37.5 mg Atenolol (Atenolol 25 Mg Tablet) 12.5 mg PO PM [facility] Stop: 04/25/23 20:59 Last Admin: 03/26/23 20:15 Dose: 12.5 mg Atorvastatin Calcium (Atorvastatin 40 Mg Tab) 80 mg PO HS [facility] Stop: 04/25/23 20:59 Last Admin: 03/26/23 20:17 Dose: 80 mg Dextrose (Dextrose 50% 50 Ml Syringe) 25 - 50 ml IV UD PRN; Protocol PRN Reason: Hypoglycemia Protocol Stop: 04/25/23 13:03 Diltiazem HCl (Diltiazem Hcl 180 Mg Capcr) 180 mg PO [facility] Stop: 04/25/23 13:59 Last Admin: 03/27/23 09:00 Dose: 180 mg Enoxaparin Sodium (Enoxaparin Inj 40 Mg/0.4 Ml Syr) 40 mg SQ Q24H [facility] Stop: 04/25/23 13:03 Last Admin: 03/26/23 14:56 Dose: 40 mg Famotidine (Famotidine 40 Mg Tablet) 40 mg PO [facility] Stop: 04/25/23 20:59 Last Admin: 03/26/23 20:18 Dose: 40 mg Ferrous Sulfate (Ferrous Sulfate 325 Mg Tab) 325 mg PO MOWEFR@0900 [facility] Stop: 04/27/23 08:59 Glucagon (Glucagon For Inj 1 Mg Vial) 1 mg SQ UD PRN; Protocol PRN Reason: Hypoglycemia Protocol Stop: 04/25/23 13:03 Glucose (Glucose 10 Tab/Tube) 4 - 8 tab PO UD PRN; Protocol PRN Reason: Hypoglycemia Treatment Stop: 04/25/23 13:03 Glucose (Glucose 40% Gel 15 Gm Tube) 15 - 30 gm PO UD PRN; Protocol PRN Reason: Hypoglycemia Protocol Stop: 04/25/23 13:03 Hydrochlorothiazide (Hydrochlorothiazide 25 Mg Tab) 25 mg PO [facility] Stop: 04/26/23 08:59 Last Admin: 03/27/23 08:59 Dose: 25 mg Ceftriaxone Sodium 2,000 mg/ (Dextrose) 70 mls @ 100 mls/hr IV Q24H [facility]; Protocol Stop: 04/05/23 09:59 Magnesium Sulfate/Dextrose (Magnesium Sulfate / D5w) 1 gm in 100 mls @ 50 mls/hr IV Q2H [facility] Stop: 03/27/23 13:14 Insulin Aspart (Insulin Aspart Per Unit Charge) [address] [facility] Stop: 04/25/23 16:29 Last Admin: 03/26/23 20:24 Dose: Not Given Isosorbide Mononitrate (Isosorbide [place] Extended Rel 60 Mg Tabcr) 120 mg PO QAM [facility] Stop: 04/25/23 13:03 Last Admin: 03/27/23 08:59 Dose: 120 mg Ketorolac Tromethamine (Ketorolac Tromethamine 10 Mg Tablet) 10 mg PO Q8H PRN PRN Reason: Severe Pain (Scale 7, 8, 9,10) Stop: 03/31/23 15:27 Last Admin: 03/27/23 02:42 Dose: 10 mg Lisinopril (L[facility]op[facility] 5 Mg Tab) [facility] Stop: 04/25/23 13:03 Last Admin: 03/27/23 09:01 Dose: 5 mg Miscellaneous (Carbohydrates For Hypoglycemia ) 15 - 30 gm PO UD PRN PRN Reason: Hypoglycemia Protocol Stop: 04/25/23 13:03 Morphine Sulfate (Morphine Sulfate 2 Mg/Ml Carp) 2 mg IV Q6H PRN PRN Reason: Severe Pain (Scale 7, 8, 9,10) Stop: 04/09/23 13:03 Nitroglycerin (Nitroglycerin Sl 0.4 Mg/Tab Tab) 0.4 mg SL UD PRN PRN Reason: Chest Pain Stop: 04/25/23 13:03 Ondansetron HCl (Ondansetron Inj 2 Mg/Ml 2 Ml Vial) 4 mg IV Q6H PRN PRN Reason: Nausea And Vomiting Stop: 04/25/23 13:03 Last Admin: 03/27/23 02:35 Dose: 4 mg Sucralfate (Sucralfate 1 Gm Tab) 1 gm PO [facility] Stop: 04/25/23 16:29 Last Admin: 03/27/23 08:58 Dose: 1 gm Umeclidinium/Vilanterol (Umeclidinium/Vilanterol 62.5/25mcg 7 Puffs/Inhaler) 1 puffs INH DAILY [facility] Stop: 04/26/23 08:59 Last Admin: 03/27/23 08:58 Dose: 1 puffs Venlafaxine HCl (Venlafaxine Hcl Xr 75 Mg Capxr) 75 [facility] Stop: 04/26/23 08:59 Last Admin: 03/27/23 08:59 Dose: 75 mg
[2023-03-27] MEDS ORDERED: POLYETHYLENE (MIRALAX) 17 GM PACK PO PRN (09:13)
[2023-03-27 09:30] LABS: Reticulocyte % 0.8 % (0.5-2.0); Reticulocytes # 0.04 10^6/uL (0.02-0.10)
[2023-03-27 09:43] LABS: Immunoglobulin A 177.4 mg/dl (70-400); Immunoglobulin G 2380.1 mg/dl (635-1741); Immunoglobulin M 276.4 mg/dl (45-281)
[2023-03-27 10:03] LABS: Ferritin 165.7 ng/ml (8-388)
[2023-03-27] MEDS: INSULIN ASPART PER UNIT CHARGE SC SCH ×4 (10:03→20:20)
[2023-03-27] MEDS: ACETAMINOPHEN 500 MG TAB PO SCH ×2 (10:10→17:12)
[2023-03-27] MEDS: MAGNESIUM SULFATE / D5W 1 GM/100 ML BAG IV SCH ×2 (10:11→11:52)
[2023-03-27] MEDS: cefTRIAXone SODIUM 2,000 MG in DEXTROSE 5% 50 ML IV SCH (10:14)
[2023-03-27 10:15] LABS: Vitamin B12 > 1500 pg/ml (180-914)
--- NOTE | 2023-03-27 10:38 | Electrocardiogram Report ---
Test Reason : Blood Pressure : / mmHG Vent. Rate : 080 BPM Atrial Rate : 080 BPM P-R Int : 174 ms QRS Dur : 086 ms QT Int : 422 ms P-R-T Axes : 072 074 041 degrees QTc Int : 486 ms Poor data quality, interpretation may be adversely affected Normal sinus rhythm Nonspecific ST abnormality When compared with ECG of 26-MAR-2023 08:57, Premature ventricular complexes are no longer Present Nonspecific ST abnormality has improved Confirmed by Sina Moyer ([id number]) on 03/27/2023 10:38:22 AM Referred By: REFERRED SELF Confirmed By:Sina Moyer
[2023-03-27] MEDS: ENOXAPARIN INJ 40 MG/0.4 ML SYR SQ SCH (13:59)
[2023-03-27] MEDS: ATORVASTATIN 40 MG TAB PO SCH (20:54)
[2023-03-27] MEDS: FAMOTIDINE 40 MG TABLET PO SCH (20:54)
[2023-03-28] MEDS: ACETAMINOPHEN 500 MG TAB PO SCH ×3 (01:17→17:46)
--- NOTE | 2023-03-28 07:42 | Hospitalist Progress Note ---
Date of Service March 28, 2023 Assessment & Plan (1) Pyelonephritis: (2) Hydroureteronephrosis: (3) Retroperitoneal lymphadenopathy: (4) Pericardial effusion: (5) Hypertensive urgency: (6) Chronic respiratory failure: (7) Diabetes mellitus, type 2: (8) CAD (coronary artery disease): (9) Hyperlipidemia: (10) Acute kidney injury: Plan L sided abd pain with nausea: -2/2 Pyelo with hydroureteronephrosis with Retroperitoneal/periaortic lymph nodes -UCx and BCx sent ---- previous UCx outpt sensitive to cephalosporin ---- will continue ceftriaxone pending culture results. - CT abd: Moderate to severe left-sided hydroureteronephrosis to the level of the ureterovesical junction. However, no obstructing stones identified. ----- hydronephrosis worsened compared to CT abd from 09/2022 (Results in the HPI) -Urology consulted: recommend to continue with abx, no cysto at this time with good UOP and clinical improvement overnight. Abnormal lymph nodes on CT c/a/p -suspicious for lymphoma -no prior hx of lymphoma -cont with workup per oncology. -possible IR biopsy of lymph node in am. Will keep NPO p MN in case this can be done in am. JOSUÉ: Worsening creatinine poss related to contrast induced nephropathy, dehydration from recent poor PO intake or possibly compression on left ureter. Will give additional hydration overnight and repeat BMP in am. HTN urgency: on admission 2/2 medication noncompliance resolved. Cont current medications. Chronic respiratory failure with COPD on 3L: -appeared well and maintained SpO2>88 with 1 L - will continue home inhalers -breathing at her baseline. DMII: -hold metformin -cont BSG checks with insulin coverage. -se has consistently been at goal without insulin coverage needed. Iron def anemia/GERD/HLD/Depression: -continue home meds -hgb is better Diet: DMII DVT PPx: Lovenox Code Status:FULL CODE Dispo- to home possibly tomorrow after creatinine improves. Yulisa Pedraza DO [facility] Hospitalist Admission and Anticipated Discharge Date Admission Date: March 26, 2023 Subjective 72 yo F admitted with pyelonephritis remains afebrile overnight IF bx of supraclavicular node performed today she remains on a small amount of oxygen reports constipation Review of Systems Review of Systems: All systems were reviewed and negative except as indicated on HPI above. Physical Exam Physical Exam: CONSTITUTIONAL: WNWD, vitals as above, generally well-appearing EYES: normal conjunctivae, no scleral icterus ENT: external ear and nose normal, NECK: trachea midline RESPIRATORY: clear to auscultation bilaterally, no crackles, rales or wheezes, normal respiratory effort CARDIOVASCULAR: regular rate and rhythm, S1 and 2 heard without murmurs, gallops or rubs, no JVD, no peripheral edema CHEST: inspection of chest was normal GASTROINTESTINAL: soft, diffuse discomfort, cheyanne in LLQ and epigastric region. no guarding, no CVA tenderness MUSCULOSKELETAL: strength 5/5 throughout, head is normocephalic and atraumatic SKIN: warm and dry, NEUROLOGIC: CN 2-12 grossly intact, no sensory deficit, normal cognition, normal speech, no tremor PSYCHIATRIC: alert cooperative and oriented to person, place and time. Results & Data Results & Data Vital Signs (Past 12 Hours) Vital Signs Temp Pulse Pulse Resp BP Pulse Ox O2 Del Method 03/28/23 07:18 36.9 C 75 18 151/85 H 92 Room Air 03/28/23 03:08 36.9 C 80 14 145/67 H 94 Nasal Cannula 03/27/23 22:58 37.2 C 71 21 129/64 96 Nasal Cannula 03/27/23 22:55 75 O2 Flow Rate 03/28/23 07:18 2 03/28/23 03:08 2 03/27/23 22:58 2 03/27/23 22:55 Laboratory Results Short CBC 03/28/23 Range/Units 07:58 WBC 9.43 (4.8-10.8) K/ul Hgb 10.9 L (12.0-16.0) g/dl Hct 33.6 L (37.0-47.0) % Plt Count 291 (130-400) K/uL BMP 03/28/23 07:58 Sodium 133 L Potassium 4.1 Chloride 98 Carbon Dioxide 31 BUN 33 H Creatinine 1.38 H Glucose 123 H Calcium 8.6 Medications Administered Current Inpatient Medications Acetaminophen (Acetaminophen 500 Mg Tab) 1,000 mg PO Q8H [facility] Stop: 04/26/23 09:29 Last Admin: 03/28/23 01:17 Dose: 1,000 mg Albuterol (Albuterol Hfa 8 Gm Inhaler) 2 puffs INH Q6H PRN PRN Reason: SHORT OF BREATH Stop: 04/25/23 13:32 Ascorbic Acid (Ascorbic Acid 500 Mg Tab) 250 mg PO MoWeFr@0900 [facility] Stop: 04/27/23 08:59 Aspirin (Aspirin 81 Mg Ectab) 81 mg PO QAM [facility] Stop: 04/26/23 08:59 Last Admin: 03/27/23 08:59 Dose: 81 mg Atenolol (Atenolol 25 Mg Tablet) 37.5 mg PO QAM [facility] Stop: 04/26/23 08:59 Last Admin: 03/27/23 09:00 Dose: 37.5 mg Atenolol (Atenolol 25 Mg Tablet) 12.5 mg PO PM [facility] Stop: 04/25/23 20:59 Last Admin: 03/27/23 20:55 Dose: 12.5 mg Atorvastatin Calcium (Atorvastatin 40 Mg Tab) 80 mg PO [facility] Stop: 04/25/23 20:59 Last Admin: 03/27/23 20:54 Dose: 80 mg Dextrose (Dextrose 50% 50 Ml Syringe) 25 - 50 ml IV UD PRN; Protocol PRN Reason: Hypoglycemia Protocol Stop: 04/25/23 13:03 Diltiazem HCl (Diltiazem Hcl 180 Mg Capcr) [facility] Stop: 04/25/23 13:59 Last Admin: 03/27/23 09:00 Dose: 180 mg Enoxaparin Sodium (Enoxaparin Inj 40 Mg/0.4 Ml Syr) 40 mg SQ Q24H [facility] Stop: 04/25/23 13:03 Last Admin: 03/27/23 13:59 Dose: 40 mg Famotidine (Famotidine 40 Mg Tablet) 40 mg PO [facility] Stop: 04/25/23 20:59 Last Admin: 03/27/23 20:54 Dose: 40 mg Ferrous Sulfate (Ferrous Sulfate 325 Mg Tab) 325 mg PO MOWEFR@0900 [facility] Stop: 04/27/23 08:59 Glucagon (Glucagon For Inj 1 Mg Vial) 1 mg SQ UD PRN; Protocol PRN Reason: Hypoglycemia Protocol Stop: 04/25/23 13:03 Glucose (Glucose 10 Tab/Tube) 4 - 8 tab PO UD PRN; Protocol PRN Reason: Hypoglycemia Treatment Stop: 04/25/23 13:03 Glucose (Glucose 40% Gel 15 Gm Tube) 15 - 30 gm PO UD PRN; Protocol PRN Reason: Hypoglycemia Protocol Stop: 04/25/23 13:03 Hydrochlorothiazide (Hydrochlorothiazide 25 Mg Tab) 25 mg PO [facility] Stop: 04/26/23 08:59 Last Admin: 03/27/23 08:59 Dose: 25 mg Ceftriaxone Sodium 2,000 mg/ (Dextrose) 70 mls @ 100 mls/hr IV Q24H [facility]; Protocol Stop: 04/05/23 09:59 Last Infusion: 03/27/23 10:56 Dose: Infused Insulin Aspart (Insulin Aspart Per Unit Charge) 0 units SC [facility] Stop: 04/25/23 16:29 Last Admin: 03/27/23 20:20 Dose: Not Given Isosorbide Mononitrate (Isosorbide [place] Extended Rel 60 Mg Tabcr) 120 mg PO [facility] Stop: 04/25/23 13:03 Last Admin: 03/27/23 08:59 Dose: 120 mg Ketorolac Tromethamine (Ketorolac Tromethamine 10 Mg Tablet) 10 mg PO Q8H PRN PRN Reason: Severe Pain (Scale 7, 8, 9,10) Stop: 03/31/23 15:27 Last Admin: 03/27/23 02:42 Dose: 10 mg Lisinopril (Lisinopril 5 Mg Tab) 5 mg PO [facility] Stop: 04/25/23 13:03 Last Admin: 03/27/23 09:01 Dose: 5 mg Miscellaneous (Carbohydrates For Hypoglycemia ) 15 - 30 gm PO UD PRN PRN Reason: Hypoglycemia Protocol Stop: 04/25/23 13:03 Morphine Sulfate (Morphine Sulfate 2 Mg/Ml Carp) 2 mg IV Q6H PRN PRN Reason: Severe Pain (Scale 7, 8, 9,10) Stop: 04/09/23 13:03 Nitroglycerin (Nitroglycerin Sl 0.4 Mg/Tab Tab) 0.4 mg SL UD PRN PRN Reason: Chest Pain Stop: 04/25/23 13:03 Ondansetron HCl (Ondansetron Inj 2 Mg/Ml 2 Ml Vial) 4 mg IV Q6H PRN PRN Reason: Nausea And Vomiting Stop: 04/25/23 13:03 Last Admin: 03/27/23 02:35 Dose: 4 mg Polyethylene Glycol (Polyethylene (Miralax) 17 Gm Pack) 17 gm PO DAILY PRN PRN Reason: Constipation Stop: 04/26/23 09:12 Last Admin: 03/27/23 10:10 Dose: 17 gm Sucralfate (Sucralfate 1 Gm Tab) 1 gm PO ACHS [facility] Stop: 04/25/23 16:29 Last Admin: 03/27/23 20:55 Dose: 1 gm Umeclidinium/Vilanterol (Umeclidinium/Vilanterol 62.5/25mcg 7 Puffs/Inhaler) 1 puffs INH DAILY [facility] Stop: 04/26/23 08:59 Last Admin: 03/27/23 08:58 Dose: 1 puffs Venlafaxine HCl (Venlafaxine Hcl Xr 75 Mg Capxr) 75 mg PO QAM [facility] Stop: 04/26/23 08:59 Last Admin: 03/27/23 08:59 Dose: 75 mg
[2023-03-28] MEDS: INSULIN ASPART PER UNIT CHARGE SC SCH ×4 (08:31→20:15)
[2023-03-28] MEDS: SUCRALFATE 1 GM TAB PO SCH ×5 (08:32→20:39)
[2023-03-28] MEDS: UMECLIDINIUM/VILANTEROL 62.5/25MCG 7 PUFFS/INHALER INH SCH (08:34)
[2023-03-28] MEDS: VENLAFAXINE HCL XR 75 MG CAPXR PO SCH (08:35)
[2023-03-28] MEDS: ATENOLOL 25 MG TABLET PO SCH ×2 (08:37→20:38)
[2023-03-28] MEDS: ISOSORBIDE MONO EXTENDED REL 60 MG TABCR PO SCH (08:38)
[2023-03-28] MEDS: dilTIAZem HCL 180 MG CAPCR PO SCH (08:39)
[2023-03-28] MEDS: lisinopril 5 MG TAB PO SCH (08:41)
[2023-03-28] MEDS: hydroCHLOROthiazide 25 MG TAB PO SCH (08:41)
[2023-03-28 08:53] LABS: Basophils # (auto) 0.03 K/uL (0-0.2); Basophils % (auto) 0.3 %; Eosinophils # (auto) 0.34 K/uL (0-0.50); Eosinophils % (auto) 3.6 %; Hematocrit (blood only) 33.6 % (37.0-47.0); Hemoglobin 10.9 g/dl (12.0-16.0); Immature Granulocytes # (auto) 0.05 K/uL (0.01-0.20); Immature Granulocytes % (auto) 0.5 %; Lymphocytes # (auto) 0.93 K/uL (1.2-3.4); Lymphocytes % (auto) 9.9 %; Mean Corpuscular Hemoglobin 24.8 pg (25.0-34.0); Mean Corpuscular Hgb Conc 32.4 g/dL (32.0-36.0); Mean Corpuscular Volume 76.5 fL (80.0-100.0); Mean Platelet Volume 9.1 fL (9.4-12.4); Monocytes # (auto) 0.86 K/uL (0.11-0.59); Monocytes % (auto) 9.1 %; Neutrophils # (auto) 7.22 K/uL (1.40-6.50); Neutrophils % (auto) 76.6 %; Platelet Count 291 K/uL (130-400); RDW Coefficient of Variation 14.7 % (11.5-14.5); RDW Standard Deviation 40.7 fL (36.4-46.3); Red Blood Count 4.39 M/uL (4.20-5.40); White Blood Count 9.43 K/ul (4.8-10.8)
[2023-03-28] MEDS ORDERED: FERROUS SULFATE 325 MG TAB PO SCH (09:00)
[2023-03-28] MEDS ORDERED: ASCORBIC ACID 500 MG TAB PO SCH (09:00)
[2023-03-28 09:10] LABS: BUN Creatinine Ratio 23.9 (10-20); Calcium 8.6 mg/dl (8.6-10.3); Creatinine Clr Calc Pharmacy 40.9 ml/min; Est GFR (African American) 43.8 ml/min; Est GFR (Non-African American) 37.8 ml/min; Phosphorus 3.8 mg/dl (2.5-4.9); Potassium 4.1 mmol/L (3.5-5.1)
[2023-03-28] MEDS: ASPIRIN 81 MG ECTAB PO SCH (09:12)
[2023-03-28] MEDS: cefTRIAXone SODIUM 2,000 MG in DEXTROSE 5% 50 ML IV SCH (11:58)
[2023-03-28] MEDS: ENOXAPARIN INJ 40 MG/0.4 ML SYR SQ SCH (12:29)
--- NOTE | 2023-03-28 15:13 | Ultrasound Report ---
Ultrasound-guided left supraclavicular lymph node FNA INDICATION: Mediastinal and retroperitoneal adenopathy; 2.5 cm left supraclavicular lymph node PROCEDURE: Procedure and risks were explained. Informed consent was obtained. A final timeout was com pleted. The neck was prepped and draped in sterile fashion. 1% buffered lidocaine was utilized for sk in anesthesia. Utilizing ultrasound guidance, a 25-gauge needle was advanced into the left supraclavicular lymph nod e. Ultrasound images were obtained. 2 passes were made with a 25-gauge needle and one pass with a 21- gauge needle and given to the pathologist for review. The patient tolerated the procedure well. IMPRESSION: Left supraclavicular lymph node FNA as above. Performed, dictated, and signed by Nico Perez PA-C; to be co-signed by Dr. Eric Stein. Electronically signed by: Eric Stein M.D. 03/28/2023 4:02 PM
[2023-03-28] MEDS ORDERED: POLYETHYLENE (MIRALAX) 17 GM PACK PO ONE (15:25)
[2023-03-28] MEDS: SODIUM CHLORIDE 0.9% 1000ML 1,000 ML IV SCH (17:51)
[2023-03-28] MEDS: FAMOTIDINE 40 MG TABLET PO SCH (20:39)
[2023-03-28] MEDS: CEFDINIR 300 MG CAP PO SCH (20:39)
[2023-03-28] MEDS: ATORVASTATIN 40 MG TAB PO SCH (20:39)
[2023-03-29] MEDS: ACETAMINOPHEN 500 MG TAB PO SCH ×2 (01:04→08:59)
[2023-03-29] MEDS: SODIUM CHLORIDE 0.9% 1000ML 1,000 ML IV SCH (02:24)
[2023-03-29] MEDS: INSULIN ASPART PER UNIT CHARGE SC SCH ×2 (08:07→12:38)
[2023-03-29 08:33] LABS: Hematocrit (blood only) 33.7 % (37.0-47.0); Hemoglobin 10.9 g/dl (12.0-16.0); Mean Corpuscular Hemoglobin 24.7 pg (25.0-34.0); Mean Corpuscular Hgb Conc 32.3 g/dL (32.0-36.0); Mean Corpuscular Volume 76.4 fL (80.0-100.0); Mean Platelet Volume 8.9 fL (9.4-12.4); Platelet Count 288 K/uL (130-400); RDW Coefficient of Variation 14.6 % (11.5-14.5); RDW Standard Deviation 40.7 fL (36.4-46.3); Red Blood Count 4.41 M/uL (4.20-5.40); White Blood Count 9.31 K/ul (4.8-10.8)
[2023-03-29 08:58] LABS: Anion Gap 5 (3-11); BUN Creatinine Ratio 24.8 (10-20); Blood Urea Nitrogen 27 mg/dl (6-23); Calcium 8.4 mg/dl (8.6-10.3); Carbon Dioxide 28 mmol/L (21-32); Chloride 99 mmol/L (98-107); Creatinine Clr Calc Pharmacy 51.8 ml/min; Est GFR (African American) 58.3 ml/min; Est GFR (Non-African American) 50.3 ml/min; Glucose 113 mg/dl (70-99(Fasting)); Sodium 132 mmol/L (136-145)
[2023-03-29] MEDS: ASPIRIN 81 MG ECTAB PO SCH (09:00)
[2023-03-29] MEDS: ATENOLOL 25 MG TABLET PO SCH (09:01)
[2023-03-29] MEDS: hydroCHLOROthiazide 25 MG TAB PO SCH (09:03)
[2023-03-29] MEDS: SUCRALFATE 1 GM TAB PO SCH ×2 (09:04→12:40)
[2023-03-29] MEDS: CEFDINIR 300 MG CAP PO SCH (09:05)
[2023-03-29] MEDS: dilTIAZem HCL 180 MG CAPCR PO SCH (09:07)
[2023-03-29] MEDS: VENLAFAXINE HCL XR 75 MG CAPXR PO SCH (09:09)
[2023-03-29] MEDS: ISOSORBIDE MONO EXTENDED REL 60 MG TABCR PO SCH (09:10)
[2023-03-29] MEDS: UMECLIDINIUM/VILANTEROL 62.5/25MCG 7 PUFFS/INHALER INH SCH (09:10)
--- NOTE | 2023-03-29 13:00 | Discharge Summary ---
Discharge Summary Date of Service March 29, 2023 Notes For Next Care Provider Pt underwent a supraclavicular lymph node biopsy on 03/28 Pathology was pending at time of discharge Please discuss results and provide oncology referral if needed Abnormal lymphadenopathy on imaging of chest, abd and pelvis CT Constitutional symptoms present Also has hydronephrosis on the left kidney Urology saw her but deferred cystoscopy. If doesn't resolve me have compression on ureter present Should followup with [facility] in a couple of weeks after treatment of infection Medication Changes From Visit NEW Cefdinir x 7 days Admission HPI Per Admitting Provider Pt is a 72 y/o F with hx of resistant HTN, Chronic respiratory failure 2/2 COPD (on 3L), DMII, CAD, HLD, iron def anemia, Depression, prior hx of recurrent UTI came into the ER with worsening L sided abd pain with nausea and dysuria. Per pt she has been having L sided abd pain for 2 months. Abt 2 weeks ago started to have nausea and 2 days ago started to have dysuria. Denied any diarrhea or constipation, blood in the stool, fever, rash, dizziness, light headedness. But has lost ~20 lbs in last 6 months. At bedside: complained of L sided abd pain (non radiating), mild SOB (chronic). Denied any acute nausea, or CP. ER course: received Ceftriaxone, Zofran, fentanyl 25mcg and [address] abd (09/2022): There is mild left hydronephrosis, with no obstructing renal calculus identified. The left kidney demonstrates poor, ill-defined, heterogeneous cortical enhancement, most likely related to an acute pyelonephritis. There is moderate perinephric stranding. A UPJ obstruction is in the differential. Principal Dx & Hospital Course #1 = Principal Diagnosis (1) Pyelonephritis: (2) Hydroureteronephrosis: (3) Retroperitoneal lymphadenopathy: (4) Pericardial effusion: (5) Hypertensive urgency: (6) Chronic respiratory failure: (7) Diabetes mellitus, type 2: (8) CAD (coronary artery disease): (9) Hyperlipidemia: (10) Acute kidney injury: Plan L sided abd pain with nausea: -2/2 Pyelo with hydroureteronephrosis with Retroperitoneal/periaortic lymph nodes -UCx and BCx sent ---- previous UCx outpt sensitive to cephalosporin ---- Ceftriaxone was transitioned to cefdinir - CT abd: Moderate to severe left-sided hydroureteronephrosis to the level of the ureterovesical junction. However, no obstructing stones identified. ----- hydronephrosis worsened compared to CT abd from 09/2022 (Results in the HPI) -Urology consulted: recommend to continue with abx, no cysto at this time with good UOP and clinical improvement overnight. -followup as outpatient. Abnormal lymph nodes on CT c/a/p -suspicious for lymphoma -no prior hx of lymphoma -cont with workup per oncology. -possible IR biopsy of supraclavicular LN on 03/28 -pathology pending at time of discharge. JOSUÉ: Worsening creatinine poss related to contrast induced nephropathy, dehydration from recent poor PO intake or possibly compression on left ureter. Resolved to normal with some IVF given overnight. HTN urgency: on admission 2/2 medication noncompliance resolved. Cont current medications. Chronic respiratory failure with COPD on 3L: -appeared well and maintained SpO2>88 with 1 L - will continue home inhalers -breathing at her baseline. DMII: -hold metformin while inpatient -cont BSG checks with insulin coverage. -she has consistently been at goal without insulin coverage needed. -resume oral metformin at discharge. Iron def anemia/GERD/HLD/Depression: -continue home meds -hgb is stable -PCP to followup. Diet: DMII DVT PPx: Lovenox Code Status:FULL CODE Dispo- to home Yulisa Pedraza DO [facility] Hospitalist Updated Medication List Medication Instructions Recorded Confirmed Type albuterol sulfate 90 mcg/actuation 2 inh inhalation Q6H PRN SHORT OF 09/03/19 03/26/23 History breath activated powder inhaler BREATH (ProAir RespiClick) aspirin 81 mg tablet,delayed 81 mg PO QAM 09/03/19 03/26/23 History release atenolol 25 mg tablet 25 mg PO UD 09/03/19 03/26/23 History atorvastatin 80 mg tablet 80 mg PO HS 09/03/19 03/26/23 History diltiazem HCl 180 mg 180 mg PO QAM 09/03/19 03/26/23 History capsule,extended release 24 hr hydrochlorothiazide 25 mg tablet 25 mg PO QAM 09/03/19 03/26/23 History isosorbide mononitrate 120 mg 120 mg PO QAM 09/03/19 03/26/23 History tablet,extended release 24 hr lisinopril 5 mg tablet 5 mg PO QAM 09/03/19 03/26/23 History metformin 500 mg tablet 1,000 mg PO BID 09/03/19 03/26/23 History venlafaxine 150 mg 75 mg PO QAM 09/03/19 03/26/23 History capsule,extended release 24 hr nitroglycerin 0.4 mg sublingual 0.4 mg sublingual USEASDIRECTD PRN 09/11/20 03/26/23 History tablet (Nitrostat) Chest Pain famotidine 40 mg tablet (Pepcid) 40 mg PO HS 04/13/22 03/26/23 History ondansetron 4 mg disintegrating 4 mg PO Q6H PRN Nausea 02/24/23 03/26/23 History tablet sucralfate 1 gram tablet 1 g PO ACHS 02/24/23 03/26/23 History iron,carbonyl 65 mg-vitamin C 125 1 tab PO MOWEFR@0900 03/26/23 03/26/23 History mg tablet,delayed release (Vitron-C) nystatin 100,000 unit/gram topical 1 applic topical TID 03/26/23 03/26/23 History powder umeclidinium 62.5 mcg-vilanterol 1 inh inhalation DAILY 03/26/23 03/26/23 History 25 mcg/actuation powdr for inhalation (Anoro Ellipta) cefdinir 300 mg capsule 300 mg PO BID #14 caps 03/29/23 Rx Hospital Stay Data Consultations 03/26/23 11:21 ED Decision to Admit Stat 03/26/23 13:04 Consult Hematology Routine Consult Urology Routine Diagnostic Imagining Performed 03/26/23 09:01 CT abd pelvis IV con only Stat 03/26/23 12:13 CT chest diagnostic w con Stat 03/28/23 09:13 IR FNA lymph node US Routine Pending Results Patient Have Any Pending Studies at Discharge: Yes Discharge Instructions Given to Patient (Per Discharging Provider) Please take all medications as instructed on discharge list below. You were found to have a kidney infection and were sent home with antibiotics to clear this up. After completing the antibiotics, please followup [facility] for further evaluation. Please follow-up wtih your primary care physician for foloow-up on the pathology report after your supraclavicular biopsy. The reading should be complete by the end of the week. It was a pleasure taking care of you! Please call if you have any questions or problems. You can reach a [facility] on duty at [facility] 24 hours a day by calling [phone]. Take care of yourself. Yulisa Pedraza, [facility] Total Time Total Time Spent Total Time Spent (In Minutes): 60
== END 2023-03-29 14:30 | disposition home or self-care (01) | DRG 988 ==
LOC: ED 08:28 → 2E 12:13 → SUATTDRO 12:13 → 2E 12:45 → 3N 03-29 01:13